=== PATIENT | female | born 1970 | race Caucasian/White ===

== ENCOUNTER 2025-04-19 17:49 | Emergency (ER) | payer SELFPAY ==
--- OUTSIDE RECORDS SUMMARY | 2025-04-19 17:55 | XMS REPORT | Continuity of Care Document ---
Author Name Unknown Address [address] [place] [address] [facility] Address [address] [place] [address] Care Team Providers Care Order Builder Name Role Phone PCP, NO Primary Care Physician Unavailab DR LAZARA Feliciano Attending Clinician UnavailCHELSEA Bunn Attending Clinician Unavailab ABDI Ochoa Attending Clinician Unavailable KATALINA DODSON Attending Clinician UnavailVARUN Murphy Attending Clinician Unavailable DR JAYANT SANCHEZ Attending Clinician Unavailab ROSALIO Manrique Attending Clinician Unavailable JAUN JONES Attending Clinician Unavailable KELSEY BYRNE Attending Clinician UnavailDAIJA Ochoa Attending Clinician Unavailable DR LAZARA BRAUN Admitting Clinician UnavailABDI Ellison Admitting Clinician Unavailable DR JAYANT SANCHEZ Admitting Clinician Unavailab ROSALIO Manrique Admitting Clinician Unavailable JAUN JONES Admitting Clinician Unavailable CARIN GOMEZ Admitting Clinician Unavailable DO JAMESON ONEIL Admitting Clinician Unavailable DEVON CHEN Admitting Clinician Unavailable KELSEY BYRNE Admitting Clinician UnavailDAIJA Ochoa Admitting Clinician Unavailable Payers Payer Name Policy Type Policy Number Effective Date Expirati on Date Source BCBS - OP JEA [id number] 1959 00:00:00 [id number] 1959 00:00:00 Problems Condition Name Condition Details Condition Category Status Onset Date Resolution Date Last Treatment Date Treating Clinician Comments Source Abdominal pain Abdominal pain Problem Active 6 00:00: [address] [facility] ([facility]) Migraine Migraine Problem Active 8- 00:00: [address] [facility] (LUF[facility] V/[facility]) Allergic reaction Allergic reaction Problem Active 406 00:00: [address] [facility] (LUF/LI V/SA) Allergic reaction Allergic reaction Problem Active 3 00:00: [address] [facility] (LUF/LI V/SA) Pain in lower limb Pain in lower limb Problem Active 2016-08 1 00:00: [address] [facility] (LUF/LI V/SA) subhepatic calcificat ion subhepatic calcificat ion Problem Active 03-25 00:00: [address] [facility] (LUF/[facility] V/SA) Chest wall pain Chest wall pain Problem Active 01-21 00:00: [address] [facility] (LUF/LI V/SA) Seizure disorder SEIZURE DISORDER active [id number] SNOMED-CT Problem 2024-05-13 20:12:09 [facility] Hypertensi ve disorder HTN active [id number] SNOMED-CT Problem 2024-05-13 20:12:15 [facility] Diabetes mellitus DM active [id number] SNOMED-CT Problem 2024-05-13 20:12:25 [facility] Folliculit is FOLLICULIT IS active [id number] SNOMED-CT Problem 2024-05-13 20:17:14 [facility] Generalize d anxiety disorder Problem [facility] Fibromyalg ia Problem [facility]) Multiple nodules of lung Problem [facility]) Type 2 diabetes mellitus Problem [facility] Hypertensi ve disorder Problem [facility]) Hyperchole sterolemia Problem [facility]) Chest pain Chest pain Problem Active [facility] 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 Problem [facility] Allergies, Adverse Reactions, Alerts Allergy Name Allergy Type Status Severity Reaction(s) Onset Date Inactive Date Treating Clinician Comments Source Valium Drug Allergy Active SV Nausea 01-21 12:28: 42 [facility] ([facility]) No Known Allergie s NA Active 01-21 11:22: 25 [facility] ([facility]) Valium Drug Allergy Active SV Nausea 01-21 11:22: 25 [facility]) No Known Allergie s NA Active 01-21 09:39: 37 [facility]) No Known Allergie s NA Active 01-21 09:31: 45 [facility] ([facility]) No Known Allergie s NA Active 01-21 08:35: 54 [facility]) No Known Allergie s NA Active 01-21 08:30: 55 [facility]) No Known Allergie s NA Active 01-21 06:51: 16 [facility]) No Known Allergie s NA Active 01-21 06:50: 42 [facility]) No Known Allergie s NA Active 01-21 04:27: 46 [facility]) No Known Allergie s NA Active 01-21 02:33: 51 [facility]) Valium DA Active Unknown [facility] ([facility]) adhesive tape DA Active Unknown [facility]) MISC-AILIN G DA Active Unknown [facility] (LUF/LI V/SA) Valium Drug Allergy Active Severe Drug-induced nausea and vomiting [facility]) VALIUM DA Active UNKNOWN "ADVERSE REACTION" [facility] VALIUM Drug allergy (disorde r) Active [facility] Social History Smoking Status Start Date Stop Date Source Never Smoked [facility]) Medications Ordered Medication Name Filled Medication Name Start Date Stop Date Current Medication? Ordering Clinician Indication Dosage Frequency Signature (SIG) Comments Components Source Clindamycin 300MG Oral Capsule 05-13 00:00: 00 No 1CAPSUL E Clindamyci n 300MG Oral Capsule 05/13/2024 Unknown BY MOUTH Three Times A Day 1 CAPSULE [id number] RxNorm TAKE 1 CAPSULE BY MOUTH Three Times A Day [facility] Ketorolac 10MG Oral Tablet 05-13 00:00: 00 No 1TABLET Ketorolac 10MG Oral Tablet 05/13/2024 Unknown BY MOUTH Three Times A Day As Needed 1 TABLET [id number] RxNorm TAKE 1 TABLET BY MOUTH Three Times A Day As Needed FOR [facility] atorvaSTATi n atorvaSTATi n 01-24 10:58: 32 Yes 20mg medication :atorvaSTA Tin|dose:2 0.0 mg|route:O RAL|freque ncy:AT BEDTIME [facility]) gabapentin gabapentin 01-24 10:58: 32 Yes 300mg medication :gabapenti n|dose:300 .0 mg|route:O RAL|freque ncy:THREE TIME DAILY [facility] ([facility]) insulin regular (humulin) 100 UNIT/ML insulin regular (humulin) 100 UNIT/ML 01-24 10:58: 32 Yes 0UN medication :insulin regular (humulin) 100 UNIT/ML|do se:0.0 UN|route:S UBCUTANEOU S|frequenc y:BEFORE MEALS AND AT BEDTIME [facility]) insulin, glargine 100 UNIT/ML insulin, glargine 100 UNIT/ML 01-24 10:58: 32 Yes 10UN medication :insulin, glargine 100 UNIT/ML|do se:10.0 UN|route:S UBCUTANEOU S|frequenc y:AT BEDTIME [facility]) sertraline (zoloft) sertraline (zoloft) 01-24 10:58: 32 Yes 50mg medication :sertralin e (zoloft)|d ose:50.0 mg|route:O RAL|freque ncy:EVERY MORNING [facility] ([facility]) Lisinopril Oral Tablet 40 MG Lisinopril Oral Tablet 40 MG 01-24 10:58: 32 Yes 40mg medication :Lisinopri l Oral Tablet 40 MG|dose:40 .0 mg|route:O RAL|freque ncy:DAILY [facility] ([facility]) sertraline (zoloft) 50 MG TABS sertraline (zoloft) 50 MG TABS 01-24 09:00: 00 01-24 14:30 :00 No 50mg medication :sertralin e (zoloft) 50 MG TABS|dose: 50.0 mg|route:O RAL|freque ncy:EVERY MORNING [facility]) atorvaSTATi n 20 MG TABS atorvaSTATi n 20 MG TABS 01-23 21:00: 00 01-24 14:30 :00 No 20mg medication :atorvaSTA Tin 20 MG TABS|dose: 20.0 mg|route:O RAL|freque ncy:AT BEDTIME [facility]) gabapentin 300 MG CAPS gabapentin 300 MG CAPS 01-23 12:33: 00 01-24 14:30 :00 No 300mg medication :gabapenti n 300 MG CAPS|dose: 300.0 mg|route:O RAL|freque ncy:THREE TIME DAILY [facility] ([facility]) insulin, glargine 100 UNIT/ML SOLN insulin, glargine 100 UNIT/ML SOLN 01-22 21:00: 00 01-24 14:30 :00 No 10UN medication :insulin, glargine 100 UNIT/ML SOLN|dose: 10.0 UN|route:S UBCUTANEOU S|frequenc y:AT BEDTIME [facility] ([facility]) insulin regular (humulin) 100 UNIT/ML SOLN insulin regular (humulin) 100 UNIT/ML SOLN 01-22 16:30: 00 01-24 14:30 :00 No 1UN medication :insulin regular (humulin) 100 UNIT/ML SOLN|dose: 1.0 UN|route:S UBCUTANEOU S|frequenc y:BEFORE MEALS AND AT BEDTIME [facility] ([facility]) sertraline (zoloft) 25 MG TABS sertraline (zoloft) 25 MG TABS 01-22 13:40: 00 01-23 12:32 :51 No 25mg medication :sertralin e (zoloft) 25 MG TABS|dose: 25.0 mg|route:O RAL|freque ncy:EVERY MORNING [facility] ([facility]) multivitami n TABS multivitami n TABS 01-22 09:00: 00 01-24 10:58 :32 No 1TAB medication :multivita min TABS|dose: 1.0 TAB|route: ORAL|frequ ency:DAILY [facility] ([facility]) lisinopril 20 MG TABS lisinopril 20 MG TABS 01-22 09:00: 00 01-24 14:30 :00 No 40mg medication :lisinopri l 20 MG TABS|dose: 40.0 mg|route:O RAL|freque ncy:DAILY [facility] ([facility]) nicotine 21mg TD 21 MG/24HR PT24 nicotine 21mg TD 21 MG/24HR PT24 01-22 09:00: 00 01-22 09:00 :00 No 1PAT medication :nicotine 21mg TD 21 MG/24HR PT24|dose: 1.0 PAT|route: TOPICAL|fr equency:DA SANGITA [facility]) gabapentin 300 MG CAPS gabapentin 300 MG CAPS 01-21 13:32: 00 01-23 12:33 :14 No 300mg medication :gabapenti n 300 MG CAPS|dose: 300.0 mg|route:O RAL|freque ncy:TWICE DAILY NEEDED [facility] CLARIFICATI ON: MED QUESTION MISC CLARIFICATI ON: MED QUESTION MISC 01-21 12:58: 00 01-21 13:34 :44 No 1EA medication :CLARIFICA TION: MED QUESTION MISC|dose: 1.0 EA|route:N OT APPLICABLE |frequency :EVERY 3 HOURS [facility]) gabapentin 300 MG CAPS gabapentin 300 MG CAPS 01-21 12:55: 00 01-21 13:34 :00 No 300mg medication :gabapenti n 300 MG CAPS|dose: 300.0 mg|route:O RAL|freque ncy:TWICE DAILY NEEDED [facility] metFORMIN metFORMIN 01-21 12:54: 39 Yes 1000mg medication :metFORMIN |dose:1000 .0 mg|route:O RAL|freque ncy:BIDMEA LS [facility]) gabapentin gabapentin 01-21 12:54: 26 Yes 300mg medication :gabapenti n|dose:300 .0 mg|route:O RAL|freque ncy:BIDPRN [facility]) lisinopril lisinopril 01-21 12:54: 15 Yes 40mg medication :lisinopri l|dose:40. 0 mg|route:O RAL|freque ncy:DAILY [facility]) DULoxetine EC CAP DULoxetine EC CAP 01-21 12:54: 04 Yes 0mg medication :DULoxetin e EC CAP|dose:0 .0 mg|route:O RAL|freque ncy:DAILY [facility] ([facility]) insulin regular (humulin) 100 UNIT/ML SOLN insulin regular (humulin) 100 UNIT/ML SOLN 01-21 12:20: 00 01-22 14:27 :20 No 1UN medication :insulin regular (humulin) 100 UNIT/ML SOLN|dose: 1.0 UN|route:S UBCUTANEOU S|frequenc y:BEFORE MEALS AND AT BEDTIME [facility] glucose ORAL 40 % GEL glucose ORAL 40 % GEL 01-21 12:19: 01-24 10:58 :32 No 1TBE medication :glucose ORAL 40 % GEL|dose:1 .0 TBE|route: ORAL|frequ ency: NEEDED [facility]) glucose ORAL 40 % GEL glucose ORAL 40 % GEL 01-21 12:19: 01-24 10:58 :32 No 2TBE medication :glucose ORAL 40 % GEL|dose:2 .0 TBE|route: ORAL|frequ ency: NEEDED [facility] glucagon INJ 1 MG SOLR glucagon INJ 1 MG SOLR 01-21 12:19: 01-24 10:58 :32 No 1mg medication :glucagon INJ 1 MG SOLR|dose: 1.0 mg|route:I NTRAMUSCUL AR|frequen cy: NEEDED [facility]) D50W INJ SYRINGE SOLN D50W INJ SYRINGE SOLN 01-21 12:19: 01-24 10:58 :32 No 50mL medication :D50W INJ SYRINGE SOLN|dose: 50.0 mL|route:I NTRAVENOUS |frequency : NEEDED [facility]) D50W INJ SYRINGE SOLN D50W INJ SYRINGE SOLN 01-21 12:19: 01-24 10:58 :32 No 25mL medication :D50W INJ SYRINGE SOLN|dose: 25.0 mL|route:I NTRAVENOUS |frequency : NEEDED [facility]) D5W SOLN D5W SOLN 01-21 12:19: 01-24 10:58 :32 No 1000mL medication :D5W SOLN|dose: 1000.0 mL|route:I NTRAVENOUS |frequency : NEEDED [facility] Trulicity Subcutaneou s Solution Pen-injecto r 0.75 MG/0.5ML Trulicity Subcutaneou s Solution Pen-injecto r 0.75 MG/0.5ML 01-21 11:32: 50 Yes .5 medication :Trulicity Subcutaneo us Solution Pen-inject or 0.75 MG/0.5ML|d ose:0.5 |route:SQ* |frequency :QWK [facility] acetaminoph en ES 500 MG TABS acetaminoph en ES 500 MG TABS 01-21 09:31: 01-24 10:58 :32 No 500mg medication :acetamino phen ES 500 MG TABS|dose: 500.0 mg|route:O RAL|freque ncy:EVERY 6 HOURS NEEDED [facility] magnesium hydroxide (MOM) 400 MG/5 ML SUSP magnesium hydroxide (MOM) 400 MG/5 ML SUSP 01-21 09:31: 01-24 10:58 :32 No 60mL medication :magnesium hydroxide (MOM) 400 MG/5 ML SUSP|dose: 60.0 mL|route:O RAL|freque ncy:DAILY NEEDED [facility]) bismuth subsalicyla te TAB 262 MG CHEW bismuth subsalicyla te TAB 262 MG CHEW 01-21 09:31: 00 01-24 10:58 :32 No 2TAB medication :bismuth subsalicyl ate TAB 262 MG CHEW|dose: 2.0 TAB|route: ORAL|frequ ency:EVERY HOUR NEEDED [facility] cloNIDine (catapres) 0.1 MG TABS cloNIDine (catapres) 0.1 MG TABS 01-21 09:31: 01-24 10:58 :32 No .1mg medication :cloNIDine (catapres) 0.1 MG TABS|dose: 0.1 mg|route:O RAL|freque ncy:THREE TIMES DAILY NEEDED [facility]) ondansetron 4 MG TABS ondansetron 4 MG TABS 01-21 09:31: 01-24 10:58 :32 No 4mg medication :ondansetr on 4 MG TABS|dose: 4.0 mg|route:O RAL|freque ncy:EVERY 6 HOURS NEEDED [facility] carmex lip balm 1 EA OINT carmex lip balm 1 EA OINT 01-21 09:31: 01-24 10:58 :32 No 1APP medication :carmex lip balm 1 EA OINT|dose: 1.0 SANCHO|route: TOPICAL|fr equency: NEEDED [facility] traZODone 50 MG TABS traZODone 50 MG TABS 01-21 09:31: 01-24 10:58 :32 No 50mg medication :traZODone 50 MG TABS|dose: 50.0 mg|route:O RAL|freque ncy:AT BEDTIME NEEDED [facility]) haloperidol 5 MG TABS haloperidol 5 MG TABS 01-21 09:31: 01-24 10:58 :32 No 5mg medication :haloperid ol 5 MG TABS|dose: 5.0 mg|route:O RAL|freque ncy:THREE TIMES DAILY NEEDED [facility]) LORazepam 2 MG TABS LORazepam 2 MG TABS 01-21 09:31: 01-24 10:58 :32 No 2mg medication :LORazepam 2 MG TABS|dose: 2.0 mg|route:O RAL|freque ncy:THREE TIMES DAILY NEEDED [facility]) hydrOXYzine PAMOATE (Vistaril) 25 MG CAPS hydrOXYzine PAMOATE (Vistaril) 25 MG CAPS 01-21 09:31: 01-24 10:58 :32 No 25mg medication :hydrOXYzi ne PAMOATE (Vistaril) 25 MG CAPS|dose: 25.0 mg|route:O RAL|freque ncy:THREE TIMES DAILY NEEDED [facility]) nicotine LOZENGE polacrilex 2 MG LOZG nicotine LOZENGE polacrilex 2 MG LOZG 01-21 09:31: 00 01-22 08:21 :07 No 2mg medication :nicotine LOZENGE polacrilex 2 MG LOZG|dose: 2.0 mg|route:O RAL|freque ncy:EVERY HOUR NEEDED [facility]) insulin regular (humulin) 100 UNIT/ML SOLN insulin regular (humulin) 100 UNIT/ML SOLN 01-21 06:28: 00 01-21 06:28 :00 No 100UN medication :insulin regular (humulin) 100 UNIT/ML SOLN|dose: 100.0 UN|route:S UBCUTANEOU S|frequenc y:ONE TIME [facility] NS SOLN NS SOLN 01-21 06:28: 00 01-21 06:28 :00 No 1000mL medication :NS SOLN|dose: 1000.0 mL|route:I NTRAVENOUS |frequency :ONE TIME [facility] Cephalexin Oral Cephalexin Oral Yes 500mg QID [facility] ([facility]) gabapentin gabapentin Yes 300mg QD [facility] ([facility]F/LI [facility]/SA) Glipizide Glipizide Yes 5MIL LIG TOMAS BID [facility] (LUF/LI V/SA) Lisinopril Lisinopril Yes [address] KIR[address] GRAMS QD [facility] (LUF/LI V/SA) Phenazopyri dine hydrochlori de 100 MG Oral Tablet Phenazopyri dine hydrochlori de 100 MG Oral Tablet Yes 100mg TID [facility] (LUF/LI V/SA) furosemide 40 MG Oral Tablet furosemide 40 MG Oral Tablet Yes 40mg [facility] (LUF/LI V/SA) Gabapentin Gabapentin Yes 300mg 1xD [facility] (LUF/LI V/SA) glipiZIDE glipiZIDE Yes [address]xD [facility] (LUF/LI V/SA) [facility]inop[facility] phenazopyri dine hydrochlori de 100 MG Oral Tablet phenazopyri dine hydrochlori de 100 MG Oral Tablet Yes 100mg 3xD [facility]) Pulmicort Flexhaler 180 mcg/actuati on breath activated Pulmicort Flexhaler 180 mcg/actuati on breath activated Yes 2 2xD [facility] (LUF/LI V/SA) albuterol 0.833 MG/ML / ipratropium bromide 0.167 MG/ML Inhalation Solution albuterol 0.833 MG/ML / ipratropium bromide 0.167 MG/ML Inhalation Solution Yes 3mL Q5.00H inhaled every 4 to 6 hours as needed. (as needed for wheezing) [facility] (LUF/LI V/SA) albuterol sulfate HFA 90 mcg/actuati on aerosol inhaler albuterol sulfate HFA 90 mcg/actuati on aerosol inhaler Yes 2 4xD inhaled 4 times per day as needed. (WITH SPACER, as needed for shortness of breath, wheezing, or persistent cough) [facility] (LUF/LI V/SA) azithromyci n 250 mg tablet azithromyci n 250 mg tablet Yes 1 orally as directed on dose pack (For 250 mg dose pack: take 500 mg today (day 1), then 250 mg for 4 days (days 2-5)) [facility]) cephALEXin cephALEXin Yes 500mg 4xD oral ly 4 times per day [facility] (LUF/LI V/SA) dexamethaso ne 6 MG Oral Tablet dexamethaso ne 6 MG Oral Tablet Yes 6mg 1xD orally daily [facility] (LUF/LI V/SA) albuterol sulfate HFA 90 mcg/actuati on aerosol inhaler albuterol sulfate HFA 90 mcg/actuati on aerosol inhaler Yes [address] [facility] ([facility]/LI [facility]) cephALEXin cephALEXin Yes 500mg [address]xD [facility] (LUF/LI V/SA) dexamethaso ne 6 MG Oral Tablet dexamethaso ne 6 MG Oral Tablet Yes 6mg [address]xD [facility] (LUF/LI V/SA) furosemide 40 MG Oral Tablet furosemide 40 MG Oral Tablet Yes 40mg [facility] ([facility]F/LI [facility]/SA) Gabapentin Gabapentin Yes 300mg [address]xD [facility] (LUF/LI V/SA) glipiZIDE glipiZIDE Yes [address]xD [facility] (LUF/LI V/SA) Lisinopril Lisinopril Yes [address]xD [facility] (LUF/LI V/SA) phenazopyri dine hydrochlori de 100 MG Oral Tablet phenazopyri dine hydrochlori de 100 MG Oral Tablet Yes 100mg [address]xD [facility] (LUF/LI V/SA) albuterol sulfate HFA 90 mcg/actuati on aerosol inhaler albuterol sulfate HFA 90 mcg/actuati on aerosol inhaler Yes [address] [facility] (LUF/LI V/SA) cephALEXin cephALEXin Yes 500mg [address]xD [facility] (LUF/LI V/SA) dexamethaso ne 6 MG Oral Tablet dexamethaso ne 6 MG Oral Tablet Yes 6mg [address]xD [facility] (LUF/LI V/SA) furosemide 40 MG Oral Tablet furosemide 40 MG Oral Tablet Yes 40mg [facility] ([facility]F/LI V/SA) Gabapentin Gabapentin Yes 300mg [address]xD [facility] (LUF/LI V/SA) glipiZIDE glipiZIDE Yes [address]xD [facility] (LUF/LI V/SA) Lisinopril Lisinopril Yes [address]xD [facility] (LUF/LI V/SA) phenazopyri dine hydrochlori de 100 MG Oral Tablet phenazopyri dine hydrochlori de 100 MG Oral Tablet Yes 100mg 3xD [facility] (LUF/LI V/SA) Vital Signs Vital Name Observation Time Observation Value Comments S ource Height 2024-05-13 20:33:06 071 Inches Body Weight 2024-05-13 20:33:06 196.00 pounds Body Weight 2024-05-13 20:27:33 196.00 pounds Height 2024-05-13 20:27:33 071 Inches Height 2024-05-13 20:25:34 071 Inches Body Weight 2024-05-13 20:25:34 196.00 pounds Height 2024-05-13 20:25:26 071 Inches Body Weight 2024-05-13 20:25:26 196.00 pounds Height 2024-05-13 20:24:58 071 Inches Body Weight 2024-05-13 20:24:58 196.00 pounds Heart Rate 2024-05-13 20:02:00 104.0 /min Respiratory Rate 2024-05-13 20:02:00 18 /min Body Temperature 2024-05-13 20:02:00 36.9 Estela Body Weight 2024-05-13 20:02:00 88.90 kg Body Mass Index 2024-05-13 20:02:00 27.34 kg/m2 Systolic Blood Pressure 2024-05-13 20:02:00 161 mm[Hg] Diastolic Blood Pressure 2024-05-13 20:02:00 119 mm[Hg] Body Height 2024-05-13 20:02:00 180.3400 cm Oxygen Saturation 2024-05-13 20:02:00 96 % Height 2024-05-13 20:33:06 071 Inches Body Weight 2024-05-13 20:33:06 196.00 pounds Body Weight 2024-05-13 20:27:33 196.00 pounds Height 2024-05-13 20:27:33 071 Inches Height 2024-05-13 20:25:34 071 Inches Body Weight 2024-05-13 20:25:34 196.00 pounds Height 2024-05-13 20:25:26 071 Inches Body Weight 2024-05-13 20:25:26 196.00 pounds Height 2024-05-13 20:24:58 071 Inches Body Weight 2024-05-13 20:24:58 196.00 pounds Heart Rate 2024-05-13 20:02:00 104.0 /min Respiratory Rate 2024-05-13 20:02:00 18 /min Body Temperature 2024-05-13 20:02:00 36.9 Estela Body Weight 2024-05-13 20:02:00 88.90 kg Body Mass Index 2024-05-13 20:02:00 27.34 kg/m2 Systolic Blood Pressure 2024-05-13 20:02:00 161 mm[Hg] Diastolic Blood Pressure 2024-05-13 20:02:00 119 mm[Hg] Body Height 2024-05-13 20:02:00 180.3400 cm Oxygen Saturation 2024-05-13 20:02:00 96 % Body temperature 2023-01-24 07:49:00 98.2 [degF] [facility]) Diastolic blood pressure 2023-01-24 07:49:00 85 mm[Hg] [facility] [place]) Heart rate 2023-01-24 07:49:00 81 /min [facility]) Oxygen saturation in Arterial blood by Pulse oximetry 2023-01-24 07:49:00 99 /min [facility] [place]) Respiratory rate 2023-01-24 07:49:00 17 /min [facility]) Systolic blood pressure 2023-01-24 07:49:00 137 mm[Hg] [facility] [place]) Body height 2023-01-21 11:29:24 180.34 cm [facility]) Body mass index (BMI) [Ratio] 2023-01-21 11:29:24 30.68 kg/m2 [facility] [place]) Body weight Measured 2023-01-21 11:29:24 99.79 kg [facility]) Height 2022-06-20 23:41:00 180.34 CM Weight 2022-06-20 23:41:00 99.8 KG Height 2022-06-07 21:59:00 172.72 CM Weight 2022-06-07 21:59:00 99.8 KG Pulse Rate 2022-06-21 01:03:00 71 /min [facility] (LUF/KARI/SA) BP Systolic 2022-06-21 01:03:00 138 mm[Hg] [facility] (LUF/KARI/SA) BP Diastolic 2022-06-21 01:03:00 96 mm[Hg] [facility] (LUF/KARI/SA) O2% BldC Oximetry 2022-06-21 00:33:00 97 % [facility] (LUF/KARI/SA) Body Temperature 2022-06-20 23:41:00 97.4 [degF] [facility] (LUF/KARI/SA) Respiratory Rate 2022-06-20 23:41:00 20 /min [facility] (LUF/KARI/SA) Height 2022-06-20 23:41:00 71 [in_i] [facility] (LUF/KARI/SA) Weight 2022-06-20 23:41:00 99.8 kg [facility] (LUF/KARI/SA) BMI (Body Mass Index) 2022-06-20 23:41:00 30.8 kg/m2 [facility] (LUF/KARI/SA) Body Temperature 2022-06-08 02:02:00 98.3 [degF] [facility] (LUF/KARI/SA) Pulse Rate 2022-06-08 02:02:00 67 /min [facility] (LUF/KARI/SA) Respiratory Rate 2022-06-08 02:02:00 18 /min [facility] (LUF/KARI/SA) O2% BldC Oximetry 2022-06-08 02:02:00 97 % [facility] (LUF/KARI/SA) BP Systolic 2022-06-08 02:02:00 164 mm[Hg] [facility] (LUF/KARI/SA) BP Diastolic 2022-06-08 02:02:00 92 mm[Hg] [facility] (LUF/KARI/SA) Height 2022-06-07 21:59:00 68 [in_i] [facility] Pending sale to [facility] (LUF/KARI/SA) Weight 2022-06-07 21:59:00 99.8 kg [facility] [facility] S t [facility] (LUF/KARI/SA) BMI (Body Mass Index) 2022-06-07 21:59:00 33.7 kg/m2 [facility] (LUF/KARI/SA) Body Temperature 2019-02-19 22:24:00 97.8 F [facility] (LUF/KARI/SA) Pulse Rate 2019-02-19 22:24:00 69 /min [facility] S Pending sale to [facility] (LUF/KARI/SA) Respiratory Rate 2019-02-19 22:24:00 18 /min [facility] (LUF/KARI/SA) O2% BldC Oximetry 2019-02-19 22:24:00 97 % [facility] (LUF/KARI/SA) BP Systolic 2019-02-19 22:24:00 127 mm[Hg] [facility] (LUF/KARI/SA) BP Diastolic 2019-02-19 22:24:00 74 mm[Hg] [facility] (LUF/KARI/SA) Height 2019-02-19 19:47:00 68 in [facility] S conner [facility] (LUF/KARI/SA) Weight Measured 2019-02-19 19:47:00 229.94 lbs [facility] (LUF/KARI/SA) BMI (Body Mass Index) 2019-02-19 19:47:00 35.2 kg/m2 [facility] (LUF/KARI/SA) Pulse Rate 2019-01-06 18:41:00 84 /min [facility] (LUF/KARI/SA) Respiratory Rate 2019-01-06 18:41:00 17 /min [facility] (F/KARI/SA) O2% BldC Oximetry 2019-01-06 18:41:00 96 % [facility] (LUF/KARI/SA) BP Systolic 2019-01-06 18:41:00 134 mm[Hg] [facility] (LUF/KARI/SA) BP Diastolic 2019-01-06 18:41:00 93 mm[Hg] [facility] (LUF/KARI/SA) Body Temperature 2019-01-06 18:01:00 97.4 F [facility] (LUF/KARI/SA) Height 2019-01-06 18:01:00 68 in [facility] S t [facility] (LUF/KARI/SA) Weight Measured 2019-01-06 18:01:00 220 lbs [facility] (LUF/KARI/SA) BMI (Body Mass Index) 2019-01-06 18:01:00 33.7 kg/m2 [facility] (LUF/KARI/SA) Body Temperature 2018-03-28 10:18:00 97.8 F [facility] (LUF/KARI/SA) Respiratory Rate 2018-03-28 10:18:00 14 /min [facility] (LUF/KARI/SA) O2% BldC Oximetry 2018-03-28 10:18:00 97 % [facility] (LUF/KARI/SA) BP Systolic 2018-03-28 10:18:00 148 mm[Hg] [facility] (LUF/KARI/SA) BP Diastolic 2018-03-28 10:18:00 91 mm[Hg] [facility] (LUF/KARI/SA) Height 2018-03-28 10:18:00 68 in [facility] (LUF/KARI/SA) Weight Measured 2018-03-28 10:18:00 210 lbs [facility] (LUF/KARI/SA) BMI (Body Mass Index) 2018-03-28 10:18:00 32.1 [facility] (LUF/KARI/SA) Body Temperature 2017-12-25 16:54:00 98.1 F [facility] (LUF/KARI/SA) Respiratory Rate 2017-12-25 16:54:00 20 /min [facility] (LUF/KARI/SA) O2% BldC Oximetry 2017-12-25 16:54:00 96 % [facility] (LUF/KARI/SA) BP Systolic 2017-12-25 16:54:00 141 mm[Hg] [facility] (LUF/KARI/SA) BP Diastolic 2017-12-25 16:54:00 93 mm[Hg] [facility] (LUF/KARI/SA) Height 2017-12-25 16:54:00 68 in [facility] S t [facility] (LUF/KARI/SA) Weight Measured 2017-12-25 16:54:00 235.89 lbs [facility] (LUF/KARI/SA) BMI (Body Mass Index) 2017-12-25 16:54:00 36.1 [facility] (LUF/KARI/SA) Respiratory Rate 2017-11-30 22:04:00 19 /min [facility] (LUF/KARI/SA) O2% BldC Oximetry 2017-11-30 22:04:00 96 % [facility] (LUF/KARI/SA) Body Temperature 2017-11-30 21:57:00 98.5 F [facility] (LUF/KARI/SA) BP Systolic 2017-11-30 21:57:00 127 mm[Hg] [facility] (LUF/KARI/SA) BP Diastolic 2017-11-30 21:57:00 82 mm[Hg] [facility] (LUF/KARI/SA) Height 2017-11-30 19:51:00 68 in [facility] Maximino prieto [facility] (LUF/KARI/SA) Weight Measured 2017-11-30 19:51:00 233.68 lbs [facility] (LUF/KARI/SA) BMI (Body Mass Index) 2017-11-30 19:51:00 35.8 [facility] (LUF/KARI/SA) O2% BldC Oximetry 2017-11-19 20:51:00 97 % [facility] (LUF/KARI/SA) Body Temperature 2017-11-19 19:58:00 98 F [facility] (LUF/KARI/SA) Respiratory Rate 2017-11-19 19:58:00 20 /min [facility] (LUF/KARI/SA) BP Systolic 2017-11-19 19:58:00 133 mm[Hg] [facility] (LUF/KARI/SA) BP Diastolic 2017-11-19 19:58:00 90 mm[Hg] [facility] (LUF/KARI/SA) Height 2017-11-19 19:58:00 68 in [facility] (LUF/KARI/SA) Weight Measured 2017-11-19 19:58:00 238.09 lbs [facility] (LUF/KARI/SA) BMI (Body Mass Index) 2017-11-19 19:58:00 36.5 [facility] (LUF/KARI/SA) Respiratory Rate 2017-07-10 02:09:00 19 /min [facility] (LUF/KARI/SA) O2% BldC Oximetry 2017-07-10 02:09:00 97 % [facility] (LUF/KARI/SA) BP Systolic 2017-07-10 02:09:00 131 mm[Hg] [facility] (LUF/KARI/SA) BP Diastolic 2017-07-10 02:09:00 86 mm[Hg] [facility] (LUF/KARI/SA) Body Temperature 2017-07-10 01:01:00 97.8 F [facility] (LUF/KARI/SA) Height 2017-07-10 01:01:00 68 in [facility] (F/KARI/SA) Weight Measured 2017-07-10 01:01:00 220.06 lbs [facility] (LUF/KARI/SA) BMI (Body Mass Index) 2017-07-10 01:01:00 33.7 [facility] (LUF/KARI/SA) Procedures Procedure Date / Time Performed Performing Clinicia n Source Cholecystectomy [facility] (LUF/KARI/SA) Hysterectomy [facility] (LUF/KARI/SA) LIVER SX [facility] (LUF/KARI/SA) Encounters Start Date/Time End Date/Time Encounter Type Admission Type Attending Clinicians Care Facility Care Department Encounter ID Source 2023-02-06 16:47:10 Inpatient [facility] [id number] [facility] 2023-02-03 13:38:20 Inpatient [id number] 2023-02-01 10:13:19 Inpatient [facility] [id number] [facility] 2023-01-23 11:20:00 Inpatient [facility] 0530 [facility] 2024-05-13 19:52:00 2024-05-13 20:32:00 Emergency [facility]UN [facility] [id number] [facility] Antoinette daily 2024-05-13 19:52:00 2024-05-13 20:32:00 Outpatient [id number] 2023-04-21 23:23:00 2023-04-22 02:44:00 Emergency E CHELSEA WHITMAN [facility] [id number] 00 [facility] 2023-01-21 08:06:00 2023-01-24 14:30:00 Hospital Admission 1 ABDI JENNINGS [facility] [id number] [facility]) 2022-12-05 19:20:00 2022-12-06 00:47:00 [id number] [facility] 2022-09-27 23:55:00 2022-09-28 01:12:00 Emergency ER VARUN SANCHEZ [id number] [facility] 2022-06-20 23:37:00 2022-06-21 01:35:00 Emergency 1 JAYANT SANCHEZ ST[facility] EMD [id number] [facility] (LUF/LI V/SA) 2022-06-20 00:00:00 2022-06-20 00:00:00 Inpatient [facility], [address], [place] [address] [facility] [id number] [facility] (LUF/LI V/SA) 2022-06-07 21:54:00 2022-06-08 02:33:00 CHEST PAIN UNSPECIFIE D 1 ROSALIO PEARSON [facility] [id number] [facility] (LUF/LI V/SA) 2022-06-07 00:00:00 2022-06-07 00:00:00 Inpatient [facility] BERNARDO N, [address], [facility], [address] [id number] [facility] (LUF/LI V/SA) 2022-06-07 00:00:00 2022-06-07 00:00:00 Inpatient [facility], [address], [facility], [address] [id number] [facility] (LUF/LI V/SA) 2019-02-21 08:57:00 2019-02-21 23:59:00 GENERALIZE D ABDOMINAL PAIN 3 JAUN JONES [facility] N, [address], [address] [id number] [facility] (LUF/LI V/SA) 2019-02-19 19:40:00 2019-02-19 22:40:00 UNSPECIFIE D ABDOMINAL PAIN 1 CARIN GOMEZ [facility] N, [address], [address] [id number] [facility] (LUF/LI V/SA) 2019-01-06 17:54:00 2019-01-06 20:45:00 ACUTE PYELONEPHR ITIS E TAMAR GUIDYR [facility] N, [address], [address] [phone] [facility] (LUF/LI V/SA) 2018-03-28 09:50:00 2018-03-28 12:27:00 MIGRAINE UNS NOT INTRACT W/O SM E JAMESON ONEIL [facility] N, [address], [address] [phone] [facility] (LUF/LI V/SA) 2017-12-25 16:41:00 2017-12-25 18:30:00 ACUTE SINUSITIS UNSPECIFIE D RENALDO SETH [facility] N, [address], [place] [address] [facility] [id number] [facility] (LUF/LI V/SA) 2017-12-03 12:42:00 2017-12-03 23:59:00 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, [address], [facility], [place] [id number] [facility] [id number] [facility] (LUF/LI V/SA) 2017-11-19 19:40:00 2017-11-19 20:59:00 ALLERGY UNSPECIFIE D INITIAL ENCNTR KELSEY BYRNE [facility], [address], [place] [address] [facility] [phone] [facility] (LUF/LI V/SA) 2017-07-10 00:30:00 2017-07-10 04:40:00 PAIN IN RIGHT LOWER LEG [address] [facility], [address], [address] [phone] [facility] (LUF/LI V/SA) Results Test Description Test Time Test Comments Results Result Co mments Source Glucose mean value [Mass/volume] in Blood [id number] 12:24:00* Test Item Value Reference Range Interpretation Comme nts Glucose mean value [Mass/vol ume] in Blood Estimated from glycated hemoglobin (test code = 53798-7) 263 MG/DL 70.0-99.[address] [facility] ([place])WHOLE BLOOD [id number] 05:37:00* Test Item Value Reference Range Interpretation Comme nts WHOLE BLOOD GLUCOSE (test code = POC GLU) 249 MG/DL 70-99 H Fasting glucose normal <100 MG/DL- [employer] recommendation Glucose mean value [Mass/volume] in Blood [id number] 05:37:00* Test Item Value Reference Range Interpretation Comme nts Glucose mean value [Mass/vol ume] in Blood Estimated from glycated hemoglobin (test code = 34223-2) 249 MG/DL 70.0-99.0 H [facility])WHOLE BLOOD [id number] 03:40:00* Test Item Value Reference Range Interpretation Comme nts WHOLE BLOOD GLUCOSE (test code = POC GLU) 320 MG/DL 70-99 H Fasting glucose normal <100 MG/DL- [employer] recommendation Glucose mean value [Mass/volume] in Blood [id number] 03:40:00* Test Item Value Reference Range Interpretation Comme [facility] Glucose mean value [Mass/vol ume] in Blood Estimated from glycated hemoglobin (test code = 57786-7) 320 MG/DL 70.0-99.0 H [facility])WHOLE BLOOD [id number] 16:07:00* Test Item Value Reference Range Interpretation Comme [facility] WHOLE BLOOD GLUCOSE (test code = POC GLU) 255 MG/DL 70-99 H Fasting glucose normal <100 MG/DL- [employer] recommendation Glucose mean value [Mass/volume] in Blood [id number] 16:07:00* Test Item Value Reference Range Interpretation Comme nts Glucose mean value [Mass/vol ume] in Blood Estimated from glycated hemoglobin (test code = 78694-9) 255 MG/DL 70.0-99.0 H [facility])WHOLE BLOOD [id number] 11:28:00* Test Item Value Reference Range Interpretation Comme nts WHOLE BLOOD GLUCOSE (test code = POC GLU) 257 MG/DL 70-99 H Fasting glucose normal <100 MG/DL- [employer] recommendation Glucose mean value [Mass/volume] in Blood [id number] 11:28:00* Test Item Value Reference Range Interpretation Comme nts Glucose mean value [Mass/vol ume] in Blood Estimated from glycated hemoglobin (test code = 45989-9) 257 MG/DL 70.0-99.0 H [facility])WHOLE BLOOD [id number] 06:43:00* Test Item Value Reference Range Interpretation Comme nts WHOLE BLOOD GLUCOSE (test code = POC GLU) 261 MG/DL 70-99 H Fasting glucose normal <100 MG/DL- [employer] recommendation Glucose mean value [Mass/volume] in Blood [id number] 06:43:00* Test Item Value Reference Range Interpretation Comme nts Glucose mean value [Mass/vol ume] in Blood Estimated from glycated hemoglobin (test code = 02034-9) 261 MG/DL 70.0-99.0 H [facility])RPR [id number] 02:56:00* Test Item Value Reference Range Interpretation Comme nts SCREEN RPR (test code = SCRN RPR) NONREACTIVE NONREACTIVE NR = NON-REACTI VE R = REACTIVE Reagin Ab [Presence] in Serum by [id number] [facility] [id number] 19:28:00* Test Item Value Reference Range Interpretation Comme nts WHOLE BLOOD GLUCOSE (test code = POC GLU) 253 MG/DL 70-99 H Fasting glucose normal <100 MG/DL- [employer] recommendation Glucose mean value [Mass/volume] in Blood [id number] 19:28:00* Test Item Value Reference Range Interpretation Comme nts Glucose mean value [Mass/vol ume] in Blood Estimated from glycated hemoglobin (test code = 66447-0) 253 MG/DL 70.0-99.0 H [facility])WHOLE BLOOD [id number] 16:15:00* Test Item Value Reference Range Interpretation Comme nts WHOLE BLOOD GLUCOSE (test code = POC GLU) 318 MG/DL 70-99 H Fasting glucose normal <100 MG/DL- [employer] recommendation Glucose mean value [Mass/volume] in Blood [id number] 16:15:00* Test Item Value Reference Range Interpretation Comme nts Glucose mean value [Mass/vol ume] in Blood Estimated from glycated hemoglobin (test code = 63981-9) 318 MG/DL 70.0-99.0 H [facility])WHOLE BLOOD [id number] 11:05:00* Test Item Value Reference Range Interpretation Comme nts WHOLE BLOOD GLUCOSE (test code = POC GLU) 270 MG/DL 70-99 H Fasting glucose normal <100 MG/DL- [employer] recommendation Glucose mean value [Mass/volume] in Blood [id number] 11:05:00* Test Item Value Reference Range Interpretation Comme nts Glucose mean value [Mass/vol ume] in Blood Estimated from glycated hemoglobin (test code = 60812-7) 270 MG/DL 70.0-99.0 H [facility])THYROID STIMULATION [id number] 09:58:00* Test Item Value Reference Range Interpretation Comme nts TSH (test code = TSH) 2.13 UIU/ML 0.465-4.68 Thyrotropin in Serum or [id number] 09:58:00* Test Item Value Reference Range Interpretation Comme nts Thyrotropin in Serum or Plas ma (test code = 66941-6) 2.13 UIU/ML 0.465-4.68 N [facility])LIPID [id number] 09:19:00* Test Item Value Reference Range Interpretation Comme nts CHOLEST (test code = CHOLEST) 223 MG/DL 0-200 H TRIGLYCE (test code = TRIGLYCE) 140 MG/DL 0-150 HDL (test code = HDL) 43 MG/DL 35-90 NEG ATIVE RISK FACTOR FOR HEART DISEASE IF HDL >/=60 mg/dl MAJOR RISK FACTOR FOR HEART DISEASE IF HDL <40 mg/dL CALC LDL (test code = CALC LDL) 152 MG/DL See_Comment H [Automated [employer]] The system which generated this result transmitted reference range: -100. The reference range was not used to interpret this result as normal/abnormal. VAP cholesterol panel - Serum or [id number] 09:17:00* Test Item Value Reference Range Interpretation Comme nts Cholesterol [Mass/volume] in Serum or Plasma (test code = 2093-3) 223 MG/DL 0.0-200.0 H Triglyceride [Mass/volume] i n Serum or Plasma (test code = 2571-8) 140 MG/DL 0.0-150.0 N Lipoprotein.alpha [Mass/volu me] in Serum or Plasma (test code = 2573-4) 43 MG/DL 35.0-90.0 N Cholesterol in LDL [Mass/vol ume] in Serum or Plasma by calculation (test code = 91196-1) 152 MG/DL H [facility])% HEMOGLOBIN A1C (GLYCATED)2023-01-22 09:16:00* Test Item Value Reference Range Interpretation Comme [facility] HEMOGLOBIN A1C (test code = GLYCO-) 11.1 % 0-6 H THERAPEUTIC TARG ET FOR THE TREATMENT OF DIABETES MELLITUS PATIENTS IS < 7% HBA1C. [employer] DIABETES CARE 2002;25:S33-S49 Hemoglobin A1c [Mass/volume] in [id number] 09:14:00* Test Item Value Reference Range Interpretation Comme [facility] Hemoglobin A1c/Hemoglobin.to jessee in Blood (test code = 4548-4) 11.1 % 0.0-6.0 H [facility])WHOLE BLOOD [id number] 06:18:00* Test Item Value Reference Range Interpretation Comme [facility] WHOLE BLOOD GLUCOSE (test code = POC GLU) 238 MG/DL 70-99 H Fasting glucose normal <100 MG/DL- [employer] recommendation Glucose mean value [Mass/volume] in Blood [id number] 06:18:00* Test Item Value Reference Range Interpretation Comme [facility] Glucose mean value [Mass/vol ume] in Blood Estimated from glycated hemoglobin (test code = 99088-9) 238 MG/DL 70.0-99.0 H [facility])WHOLE BLOOD [id number] 20:43:00* Test Item Value Reference Range Interpretation Comme [facility] WHOLE BLOOD GLUCOSE (test code = POC GLU) 242 MG/DL 70-99 H Fasting glucose normal <100 MG/DL- [employer] recommendation Glucose mean value [Mass/volume] in Blood [id number] 20:43:00* Test Item Value Reference Range Interpretation Comme [facility] Glucose mean value [Mass/vol ume] in Blood Estimated from glycated hemoglobin (test code = 34597-9) 242 MG/DL 70.0-99.0 H [facility])WHOLE BLOOD [id number] 16:24:00* Test Item Value Reference Range Interpretation Comme [facility] WHOLE BLOOD GLUCOSE (test code = POC GLU) 276 MG/DL 70-99 H Fasting glucose normal <100 MG/DL- [employer] recommendation Glucose mean value [Mass/volume] in Blood [id number] 16:24:00* Test Item Value Reference Range Interpretation Comme [facility] Glucose mean value [Mass/vol ume] in Blood Estimated from glycated hemoglobin (test code = 33556-8) 276 MG/DL 70.0-99.0 H [facility])WHOLE BLOOD [id number] 11:22:00* Test Item Value Reference Range Interpretation Comme [facility] WHOLE BLOOD GLUCOSE (test code = POC GLU) 237 MG/DL 70-99 H Fasting glucose normal <100 MG/DL- [employer] recommendation Glucose mean value [Mass/volume] in Blood [id number] 11:22:00* Test Item Value Reference Range Interpretation Comme [facility] Glucose mean value [Mass/vol ume] in Blood Estimated from glycated hemoglobin (test code = 09677-9) 237 MG/DL 70.0-99.0 H [facility])WHOLE BLOOD [id number] 08:21:00* Test Item Value Reference Range Interpretation Comme [facility] WHOLE BLOOD GLUCOSE (test code = POC GLU) 198 MG/DL 70-99 H Fasting glucose normal <100 MG/DL- [employer] recommendation Glucose mean value [Mass/volume] in Blood [id number] 08:21:00* Test Item Value Reference Range Interpretation Comme [facility] Glucose mean value [Mass/vol ume] in Blood Estimated from glycated hemoglobin (test code = 69395-9) 198 MG/DL 70.0-99.0 H [facility])B-HCG QUAL (KIT)2023-01-21 04:58:00* Test Item Value Reference Range Interpretation Comme nts HCGQUAL (test code = HCGQUAL) NEGATIVE NEGATIVE URINE: NEGATIVE = < 20 mIU/ML; POSITIVE= >/= 20 mIU/ML SERUM: NEGATIVE = < 10 mIU/ML; POSITIVE= >/= 10 mIU/ML SOURCE (test code = SOURCE) SERUM HCG INTERNAL POSITIVE CNTRL (test code = HCGIPC) PASS PASS HCG LOT # (test code = UHCGLOT) [id number] HCG EXPIRATION DATE (test code = UHCGEXP) 03.27.2024 Choriogonadotropin.beta subunit ( [id number] 04:58:00* Test Item Value Reference Range Interpretation Comme nts Specimen source [Identifier] of Body fluid (test code = 13919-3) SERUM N Reagent Lot number (test cod e = 86844-9) 03.27.2024 1 N [facility])ER SCREEN FOR HIV 04:45:00* Test Item Value Reference Range Interpretation Comme nts HIV 1/2 AB (test code = SCRN HIV) NEGATIVE NEGATIVE This test is us ed for SCREENING purposes only. All reactive results are prelimenary and confirmation results will follow. HEPATITIS C ANTIBODY [id number] 04:45:00* Test Item Value Reference Range Interpretation Comme [facility] SCRN HCV (test code = SCRN HCV) NEGATIVE NEGATIVE Hepatitis C Anti body test is for screening purposes only. All reactives will be confirmed by additional testing. Hepatitis C virus Ab [Presence] in [id number] 04:45[facility]HIV 1+2 Ab [Units/volume] in [id number] 04:45:00Negative [facility])URINE DRUG [id number] 04:41:00* Test Item Value Reference Range Interpretation Comme nts AMPHET (test code = BAMP) NEGATIVE NEGATIVE This is an uncon firmed screening. Result are to be used for medical purposes (treatment) only. Not intended for non-medical purposes. Cut-off concentration for a positive result for each drug: Amphetamine - 1,000 ng/ml Barbiturate - 200 ng/ml Benzodiazepine - 200 ng/ml Cannabinoids - 50 ng/ml Cocaine - 300 ng/ml Opiates - 300 ng/ml PCP - 25 ng/ml BARBITURATES (test code = BBAR) NEGATIVE NEGATIVE BENZO (test code = BBENZ) NEGATIVE NEGATIVE CANNABS (test code = BCANN) NEGATIVE NEGATIVE COCAINE (test code = BCOC) NEGATIVE NEGATIVE OPIATES (test code = BOPI) NEGATIVE NEGATIVE PCP (test code = BMTPCP) NEGATIVE NEGATIVE Drugs of abuse 5 panel - Urine by Screen [id number] 04:35:00 NegativeNegativeNegativeNegativeNegativeNegativeNegative[facility])[id number] 04:11:00* Test Item Value Reference Range Interpretation Comme nts GLUCOSE (test code = URGLU) >=1000 MG/DL NEG-100 BILIRUBN (test code = URBILI) NEGATIVE NEGATIVE KETONE (test code = URKET) NEGATIVE MG/DL NEGATIVE BLOOD (test code = URBLD) NEGATIVE NEGATIVE UR PH (test code = URPH) 7.0 5.0-7.5 PROTEIN (test code = URPRO) NEGATIVE MG/DL NEGATIVE NITRITES (test code = URNIT) NEGATIVE NEGATIVE UROBILINGEN (test code = URURO) 1.0 EU/DL 0.2-1.0 LEUKOCYT (test code = URLEU) NEGATIVE NEGATIVE UA COLOR (test code = UA COLOR) YELLOW YELLOW CLARITY (test code = CLARITY) CLOUDY CLEAR SP GRAV (test code = URSPGRAV) 1.026 1.000-1.025 H UAMICRO (test code = UAMICRO) NO Urinalysis panel - Urine by [id number] 04:11:00* Test Item Value Reference Range Interpretation Comme nts Glucose [Presence] in Urine (test code = 2349-9) >=1000 NEG N pH of Urine (test code = 2756-5) 7.0 1 5.0-7.5 N Urobilinogen [Presence] in U rine (test code = 49340-7) 1.0 EU/DL 0.2-1.0 N Specific gravity of Urine (t est code = 2965-2) 1.026 1 1.0-1.025 [facility])COVID SYMPTOMATIC ER [id number] 03:58:00* Test Item Value Reference Range Interpretation Comme nts CORONAVIRUS (COVID-19)BY PCR (test code = NGX01DBH) NEGATIVE SARS-CoV-2 (COVID-19) N gene [Presence] in [id number] 03:58:00Negative [facility] ([place])BLOOD ALCOHOL (ETOH)2023-01-21 03:56:00* Test Item Value Reference Range Interpretation Comme nts ALCOHOL BLOOD LEVEL (test code = ALC BLD) <10 MG/DL 0-10 Results ar e to be used for medical purposes (treatment) only. Not intended for non medical purposes. CREATINE [id number] 03:56:00* Test Item Value Reference Range Interpretation Comme nts CK (test code = CK) 75 U/L 30-135 [id number] 03:56:00* Test Item Value Reference Range Interpretation Comme nts SODIUM (test code = NA) 138 MMOL/L 137-145 K+ (test code = KSERUM) 4.4 MMOL/L 3.5-5.1 CHLORIDE (test code = CL) 103 MMOL/L 98-107 CO2 (test code = CO2) 25 MMOL/L 22-30 BUN (test code = BUN) 8 MG/DL 7-17 CREA (test code = CREA) 0.5 MG/DL 0.7-1.2 L GLUCOSE (test code = GLUCOSE) 327 MG/DL 70-99 H Fasting glucos e normal <100 MG/DL- [employer] recommendation CALCIUM (test code = CABLOOD) 9.0 MG/DL 8.4-10.2 TOTPROT (test code = TOTPROT) 7.2 G/DL 6.3-8.2 ALBUMIN (test code = ALBSERUM) 4.2 G/DL 3.5-5.0 BILITOT (test code = BILITOT) 0.9 MG/DL 0.2-1.3 AST (test code = AST) 32 U/L 15-46 PHOSALK (test code = PHOSALK) 106 U/L 38-126 ALTV (test code = ALTV) 23 U/L 13-69 GFR (test code = GFR) 138 mL/min/1.73m2 See_Comment A GFR of >90 mL/min/1.73m2 is considered normal. The GFR calculation on patients over 70 years of age is not validated by the armored vehicle officer and may not represent the patients true renal function. [Automated message] The system which generated this result transmitted reference range: 59-. The reference range was not used to interpret this result as normal/abnormal. Ethanol [Mass/volume] in [id number] 03:56:00* Test Item Value Reference Range Interpretation Comme nts Ethanol [Mass/volume] in Blo od (test code = 5640-8) <10 0.0-10.[address] [facility] ([place])Comprehensive metabolic 2000 panel - Serum or P 2023-01-21 03:56:00* Test Item Value Reference Range Interpretation Comme nts Sodium [Moles/volume] in Blood (test code = 2947-0) 138 MMOL/L 137.0-145.0 N Potassium [Moles/volume] in Blood (test code = 6298-4) 4.4 MMOL/L 3.5-5.1 N Chloride [Moles/volume] in Blood (test code = 2069-3) 103 MMOL/L 98.0-107.0 N Carbon dioxide, total [Moles/volume] in Blood (test code = 87749-7) 25 MMOL/L 22.0-30.0 N Urea nitrogen [Mass/volume] in Serum or Plasma (test code = 3094-0) 8 MG/DL 7.0-17.0 N Creatinine [Mass/volume] in Blood (test code = 05579-3) 0.5 MG/DL 0.7-1.2 L Glucose [Mass/volume] in Blood (test code = 2339-0) 327 MG/DL 70.0-99.0 H Calcium [Mass/volume] in Serum or Plasma (test code = 99833-3) 9.0 MG/DL 8.4-10.2 N Protein [Mass/volume] in Serum or Plasma (test code = 2885-2) 7.2 G/DL 6.3-8.2 N Albumin [Presence] in Serum or Plasma (test code = 80448-3) 4.2 G/DL 3.5-5.0 N Bilirubin direct and total panel [Mass/volume] - Serum or Plasma (test code = 67640-2) 0.9 MG/DL 0.2-1.3 N Aspartate aminotransferase [Enzymatic activity/volume] in Serum or Plasma (test code = 1920-8) 32 U/L 15.0-46.0 N Alkaline phosphatase [Enzymatic activity/volume] in Serum or Plasma (test code = 6768-6) 106 U/L 38.0-126.0 N Alanine aminotransferase [Enzymatic activity/volume] in Serum or Plasma (test code = 1742-6) 23 U/L 13.0-69.0 N Estimated or measured glomerular filtration rate less than 50 percent [- Reported] (test code = 75080-3) 138 mL/min/1.73m2 N [facility])Creatine kinase isoenzymes [interpretation] in 2023-01-21 03:56:00* Test Item Value Reference Range Interpretation Comme nts Creatine kinase isoenzymes [interpretation] in Serum or Plasma Narrative (test code = 49510-8) 75 U/L 30.0-135.0 N [facility])[id number] 03:38:00* Test Item Value Reference Range Interpretation Comme nts WBC (test code = WBC) 7.5 K/UL 3.5-10.9 RBC (test code = RBC) 5.36 M/UL 4.0-5.0 H HGB (test code = HGB) 15.7 G/DL 11.5-15.5 H HCT (test code = HCT) 46.3 % 34-46 H MCV (test code = MCV) 86.4 FL 80-98 MCH (test code = MCH) 29.3 PG 28-32 MCHC (test code = MCHC) 33.9 G/DL 32.5-36.5 RDW (test code = RDW) 12.8 % 11.5-14.5 PLT (test code = PLT) 277 K/UL 150-450 MPV (test code = MPV) 10.9 FL 7.4-10.4 H MANDIFF (test code = MANDIFF) NO SCAN (test code = SCAN) NO NEUT% (test code = NEUT%) 58.7 % 40-75 LYMPH% (test code = LYMPH%) 31.4 % 24-44 MONO% (test code = MONO%) 4.4 % 0-13 EOS% (test code = EOS%) 4.0 % 0-4 BASO % (test code = BASO%) 1.1 % 0-2 IG (test code = IG) 0 % 0-1 IG% (test code = IG%) 0.4 % 0-1 IG% = Metamyeloc ytes, Myelocytes, and Promyelocytes. (Immature neutrophils not including "bands".) > 3% IG indicates risk of sepsis NRBC% (test code = NRBC%) 0 /100 WBC ABS NEUT (test code = NEUT) 4.4 K/UL 1.2-7.2 CBC W Auto Differential panel - [id number] 03:38:00* Test Item Value Reference Range Interpretation Comme nts Leukocytes other [Identifier ] in Blood by Automated count (test code = 16201-6) 7.5 K/UL 3.5-10.9 N Erythrocytes [#/volume] in B lood (test code = 28940-5) 5.36 M/UL 4.0-5.0 H Hemoglobin A/Hemoglobin.tota l in Blood (test code = 4546-8) 15.7 G/DL 11.5-15.5 H Hematocrit [Volume Fraction] of Blood (test code = 84241-5) 46.3 % 34.0-46.0 H Erythrocyte mean corpuscular volume [Entitic volume] (test code = 43845-7) 86.4 FL 80.0-98.0 N Erythrocyte mean corpuscular hemoglobin [Entitic mass] (test code = 15065-4) 29.3 PG 28.0-32.0 N Erythrocyte mean corpuscular hemoglobin concentration [Mass/volume] (test code = 60949-3) 33.9 G/DL 32.5-36.5 N Erythrocyte distribution wid th [Ratio] (test code = 50829-1) 12.8 % 11.5-14.5 N Platelets panel - Blood by Automated count (test code = 80658-1) 277 K/UL 150.0-450.0 N Platelet mean volume [Entiti c volume] in Blood by Automated count (test code = 40932-6) 10.9 FL 7.4-10.4 H Neutrophils.segmented/100 leukocytes in Blood (test code = 35910-6) 58.7 % 40.0-75.0 N Lymphocytes Variant/100 leuk ocytes in Blood (test code = 76178-3) 31.4 % 24.0-44.0 N Lymphocytes+Monocytes/100 leukocytes in Blood (test code = 4662-3) 4.4 % 0.0-13.0 N Eosinophils [#/volume] in Bl ood (test code = 86081-3) 4.0 % 0.0-4.0 N Basophils [#/volume] in Bloo d (test code = 02416-7) 1.1 % 0.0-2.0 N Immature granulocytes/100 leukocytes in Blood (test code = 93300-7) 0.4 % 0.0-1.0 N Nucleated erythrocytes [#/vo lume] in Blood (test code = 49340-7) 0 /100 WBC N Neutrophils [#/volume] in Bl ood (test code = 57618-9) 4.4 K/UL 1.2-7.[address] [facility] ([place])COVID EXTENDED [id number] 01:05:00* Test Item Value Reference Range Interpretation Comme nts COVID-19, Real Time PCR-MATT (test code = COVID) Negative Negative N FT (test code = FLUAPCR) Negative (quali fier value) Negative N FT (test code = FLUBPCR) Negative (quali fier value) Negative N FT (test code = RSV) Negative (qualifier value) Negative N FIRST TEST: (test code = COVO.FT) U EMPLOYEE IN HEALTHCARE: (test code = COVO.EMP) U SYMPTOMATIC DEFINED BY CDC: (test code = COVO.SYMPH) U HOSPITALIZED: (test code = COVO.HOSP) U ADMITTED TO ICU: (test code = COVO.ICU) U RESIDENT IN CONGREGATE CARE (test code = COVO.PAYAL) U : (test code = COVO.PREG) Unk STLMLXR CHEST 2 PA [id number] 00:36:56 [facility] ([facility])Name: GATO PATEL : 1970 Sex: FEXAMINATION: XR CHEST 2 PA LATERALINDICATION: [id number]: [id number]: CT chest Oc tob2021FINDINGS:TUBES and LINES: None.LUNGS: Lungs are well inflated. Few scattered pulmonary nodules for example inthe right lower lobe are better seen on recent CT chest. Mild bilateral hilarperibronchial wall thickening remains stable. Hazy opacities and reticulation ofthe lungs, mainly in the lower lobes, unchanged. No new consolidations.PLEURA: No pleural effusion or pneumothorax.HEART AND MEDIASTINUM: The cardiomediastinal silhouette is unremarkable.BONES AND SOFT TISSUES: No acuteosseous lesion. Soft tissues areunremarkable.UPPER ABDOMEN: No free air under the diaphragm.IMPRESSION:Few bilateral indeterminate pulmonary nodules, better seen on CT chest 2021, remain concerning either for metastases or atypical infection.Recommend PET/CT for further evaluation.Persistent bilateral hilar peribronchial wall thickening and mild reticulationof the lungs suggestive of acute bronchitis, either inflammatory or infectious.This final report was electronically signed by Leana Mallory MD06/21/2022 12:31 AMDictated By: Dann CONCEPCION: 200:31STLCT ANGIO CHEST W/WO or W/ [id number] 02:06:02[facility] ([facility]/)Name: GATO PATEL : 1970 Sex: FEXAM: CT Chest WITH contrast (PE Protocol)INDICATION: [id number]: [id number]: NoneTECHNIQUE:Chest was scanned utilizing a multidetector helical scanner from the lung apexthrough the level of the diaphragm after administration of IV contrast. Thinsection reconstructions were obtained with special concentration on thepulmonary arteries. Coronal and sagittal reformations were obtained. Pulmonaryembolism protocol was performed.IV CONTRAST: 100 mL of Isovue 370COMPLICATIONS: NoneRADIATION DOSE:Total DLP: 629 mGy*cmEstimated effective dose: (DLP x 0.014 x size factor) mSvCTDIvol has been reviewed. It is below the limits set by the RadiationProtocol Committee (RPC).Dose modulation, iterative reconstruction, and/or weight based adjustmentsof the mA/kV was utilized to reducethe radiation dose to as low as reasonablyachievable.FINDINGS:LINES/ TUBES: None.LUNGS AND AIRWAYS:No filling defect is identified within the pulmonary arteriesto the segmental level. Mosaic attenuation of the lung parenchyma.Several solid pulmonary nodules:* 0.6 cm, superior segment right lower lobe, 4/62.* 0.9 cm, right lower lobe, 4/77.* 1.0 cm, medial right lower lobe, 4/97.* 0.5 cm, left apex, 4/36.PLEURA: The pleural spaces are clear.HEART AND MEDIASTINUM: 1.0 cm hypodense nodule left thyroid lobe; no furtherimaging follow-up per ACR guidelines. Prominent 0.5 cm right hilar lymph node.Prominent 0.8 cm precarinal lymph node. Otherwise no mediastinallymphadenopathy. The heart is normalin size.. There is no pericardial effusion.. Thoracic aorta and main pulmonary artery normal caliber.UPPER ABDOMEN: Hepatic steatosis. Metallic clips at the margin of the righthepatic lobe, unchanged. Cholecystectomy.BONES: The visualized bony thorax is within normal limits.SOFT TISSUES: Unremarkabl e.IMPRESSION:1. No pulmonary emboli.2. Several solid pulmonary nodules measuring up to 1.0 cm. Recommend PET/CT,tissue sampling, or follow-up chest CT in 3 months.3. Mosaic attenuation overlying parenchyma suggestive of small airways disease.4. Prominent right hilar lymph node. Attention on follow-up.This final report was electronically signed by Dr Umm Matt 06/08/2022 2:00 AMDictated By: UMM MATTDate: 06/08/2022 02:00STLMLHIGH SENSITIVITY [id number] 00:30:00* Test Item Value Reference Range Interpretation Comme nts HIGH SENSITIVITY TROPONIN (test code = TNIH) 29.8 ng/L 0.0-34.0 CHANGE IN TEST M ETHOD A change in the test method for Troponin has gone into effect. We now test for High Sensitivity Troponin. The new units of measure are ng/L, and the new 99th percentile cutoff of 34 ng/L for FEMALE and 53 ng/L for MALE. New critical values will be called for any troponin greater than or equal to 500 ng/L. STLMLPRO-BNP(B-Type Natriuretic Peptide)2022-06-08 00:30:00* Test Item Value Reference Range Interpretation Comme nts Pro-BNP(B-Peptide) (test cod e = PROBNP) 61 pg/ml 0-125 STLMLD-DIMER [id number] 00:28:00* Test Item Value Reference Range Interpretation Comme nts D DIMER (test code = D DIM) 0.53 mg/L FEU 0.19-0.50 H METHOD CHANGE: Due to the discontinued mehodology currently in use, a change in the testing method is necessary. The Reference Ranges will change dramatically, and results are obtained by the observance of clotting activation mesured on the [employer] instruments. This same methodology is currently in use for PT/INR , PTT, AND HEPARIN testing in our Labs. The D-Dimer assay is an aid in the evaluation of thromboembolic events, as in DIC, DVT, Pulmonary Embolism, and other thromboembolic diseases, and should not be used without other diagnostic measures, to properly diagnose and treat thromboembolic disease. REFERENCE RANGE: 0.19 - 0.50 mg/L FEU (Fibrinogen Equivalent Units) Cut-Off Value is: > .50 mg/L FEU Note: Results greater than (>) the Cut-Off are to be considered POSITIVE, and significant in the evaluation of thromboembolic diseases. Results less than (<) the Cut-Off are to be considered NEGATIVE, and a low probability of thromboembolic disease. [id number] 00:27:00* Test Item Value Reference Range Interpretation Comme nts Glucose (test code = GLU) 295 mg/dl 75-110 H BUN (test code = BUN) 11.0 mg/dl 6.0-17.0 Creatinine (test code = CREA) 0.8 mg/dl 0.4-1.2 Sodium (test code = NA) 136 mmol/l 137-145 L Potassium (test code = K) 3.7 mmol/l 3.5-5.0 Chloride (test code = CL) 103 mmol/l 98-107 CO2 (test code = CO2) 30 mmol/l 22-30 Calcium (test code = CALC) 9.0 mg/dl 8.4-10.2 T Protein (test code = TP) 6.7 gm/dl 5.1-8.7 Albumin (test code = ALB) 3.5 gm/dl 3.5-4.6 A/G Ratio (test code = AGRAT) 1.1 % 1.1-2.2 AST (SGOT) (test code = AST) 12 U/L 11-36 ALT (SGPT) (test code = ALT) 25 U/L 11-40 Alkaline Phos (test code = ALKP) 97 U/L 47-114 Bilirubin, Total (test code = TBIL) 0.5 mg/dl 0.2-1.2 Globulin (test code = GLOBU) 3.2 gm/dl 2.3-3.5 Anion Gap (test code = GAP) 3 mmol/l 5-15 L Calcium, Corrected (test code = CALCCORR) 9.4 mg/dl 8.4-10.2 Various formulas exist for corrected serum calcium results, each yielding different values. This corrected result was based on the formula: Corrected Calcium = SerumCalcium + [0.8 * ( 4 - SerumAlbumin)] EGFR if (test code = EGFRAA) >60 mL/min/1.73m\\ S\\2 EGFR if Non- (test code = EGFRNA) >60 mL/min/1.73m\\ S\\2 Estimated Glomerular Filtration Rate (eGFR) Reference Intervals Decision Points for 18 years and older and average body mass: >= 60 Does not exclude kidney disease. 30 - 59 Suggests moderate chronic kidney disease and indicates the need for further investigation including assessment of proteinuria and cardiovascular factors. < 30 Usually indicates a need for referral for assessment and management of chronic kidney failure. STLMLXR CHEST AP/PA 1 [id number] 00:17:16 [facility] ([facility])Name: GATO PATEL : 1970 Sex: FEXAMINATION: XR CHEST AP/PA 1 VIEWINDICATION: [id number]: DyspneaCOMPARISON: X-ray dated NovemberFINDINGS:TUBES and LINES: None.LUNGS: Normal lung volumes. Mild linear scarring or atelectasis in the rightlower lung. No consolidations.PLEURA: No pleural effusion or pneumothorax.HEART AND MEDIASTINUM: The cardiomediastinal silhouette is unremarkable.BONES AND SOFT TISSUES: No acute osseous lesion. Soft tissues areunremarkable.UPPER ABDOMEN: No free air under the diaphragm.IMPRESSION:No acute thoracic radiographic abnormality.This final report was electronically signed by Dr Umm Matt 06/08/2022 12:11AMDictated By: UMM MATTDate: 06/08/2022 00:11STLMLCBC WITH AUTO [id number] 00:08:00 * Test Item Value Reference Range Interpretation Comme nts WBC (test code = WBC) 7.23 10\\S\\3/ul 4.80-10.80 RBC (test code = RBC) 4.73 10\\S\\6/ul 4.20-5.40 Hemoglobin (test code = HGB) 13.7 gm/dl 12.0-14.0 Hematocrit (test code = HCT) 40.9 % 37.0-47.0 MCV (test code = MCV) 86.5 fL 81.0-99.0 MCH (test code = MCH) 29.0 pg 27.0-31.0 MCHC (test code = MCHC) 33.5 gm/dl 33.0-37.0 RDW (test code = RDWVC) 12.7 % 11.5-14.5 Platelet (test code = PLT) 255 10\\S\\3/ul 130-400 MPV (test code = MPV) 10.6 fL 7.4-10.4 A "NOT MEASURED" RESULTS ARE DISPLAYED WHEN THE INSTRUMENT HAS A SUPPRESSED OR UNREPORTABLE RESULT. THIS WILL MOST OFTEN HAPPEN WITH THE MPV WHEN THERE IS AN ABNORMAL PLATELET DISTRIBUTION DUE TO A CRITICAL LOW VALUE OR PLATELET CLUMPING. THE RDW MAY BE SUPPRESSED IF THERE ARE MULTIPLE PEAKS PRESENT ON THE RBC HISTOGRAM. IN THIS CASE, A MANUAL REVIEW OF THE SLIDE WILL BE PERFORMED, AND RBC MORPHOLOGY WILL BE NOTED ON THE REPORT. NE% (test code = NE) 47.6 % 42.0-75.0 LY% (test code = LY) 41.5 % 13.0-42.0 MO% (test code = MO) 4.6 % 4.0-14.0 EO% (test code = EO) 5.1 % 1.0-5.0 H BA% (test code = BA) 0.8 % 0.0-3.0 IG% (test code = IG%) 0.4 % 0.0-0.4 STLMLUS ABDOMEN [id number] 10:27:14Abdominal ultrasound:Date of exam: 02/21/2019History: Right upper quadrant painThe liver is normal in size and echogenicity. No focal parenchymal abnormalityor intrahepatic biliary duct dilatation is identified. Hepatopedal flow is notedin the portal vein.The gallbladder is surgically absent. The common duct was not dilated.The spleen appeared unremarkable. The visualized pancreas, IVC and aorta show nosignificant abnormality. No renal abnormality is identified.There is no ascites.Impression: Status post cholecystectomy, otherwise unremarkable abdominalultrasound.This final report was electronically signed by Dr Angel Lewis MD 02/21/201910:21 AMDictated By: ANGEL LEWISDate: 02/21/2019 10:21[facility]PELVIS W/[id number] 22:13:52EXAMINATION: CT of the abdomen and pelvis with contrast.TECHNIQUE:Helical images of the abdomen andpelvis were performed from the lung bases tothe lesser trochanters after the intravenous administration of 100 cc ofOmnipaque 300 and the oral administration of none. Coronal and sagittalreformatted images were obtained.Dose modulation, iterative reconstruction,and/or weight based adjustment of themA/kV was utilized to reduce the radiationdose to as low as reasonably achievable.COMPARISON: None.CLINICAL HISTORY:Abdominal painDISCUSSION:ABDOMEN/PELVIS:LOWER THORAX:Unremarkable.HEPATOBILIARY: Nofocal hepatic lesions. No intra-or extrahepatic biliaryductal dilation. Cholecystectomy.SPLEEN: No s plenomegaly.PANCREAS: No focal masses or ductal dilatation.ADRENALS: No adrenal nodules.KIDNEYS/URETERS: No hydronephrosis, stones, or solid mass lesions.PELVIC ORGANS/BLADDER: Bladder is unremarkable. Hysterectomy.PERITONEUM/RETROPERITONEUM: No free air or fluid.LYMPH NODES: No intra-abdominal, retroperitoneal, pelvic or inguinallymphadenopathy.VESSELS: Unremarkable.GI TRACT: No distention or wall thickening.BONES AND SOFT TISSUE: No bony destructive lesions. No soft tissueabnormalities.IMPRESSION:No acute CT finding.This final report was electronically signed by Dr Chuy Larson MD 02/19/201910:07 PMDictated By: LUCINDA LARSONWDate: 02/19/2019 22:07[facility] [id number] 20:52:00* Test Item Value Reference Range Interpretation Comme nts Lipase (test code = LIPA) 224 U/L 8-223 H [place] [id number] 20:52:00* Test Item Value Reference Range Interpretation Comme nts Glucose (test code = GLU) 179 mg/dl 75-110 H BUN (test code = BUN) 12.0 mg/dl 6.0-17.0 Creatinine (test code = CREA) 0.7 mg/dl 0.4-1.2 Sodium (test code = NA) 139 mmol/l 137-145 Potassium (test code = K) 3.9 mmol/l 3.5-5.0 Chloride (test code = CL) 106 mmol/l 98-107 CO2 (test code = CO2) 28 mmol/l 22-30 Calcium (test code = CALC) 8.7 mg/dl 8.4-10.2 T Protein (test code = TP) 7.1 gm/dl 5.1-8.7 Albumin (test code = ALB) 3.4 gm/dl 3.5-4.6 L A/G Ratio (test code = AGRAT) 0.9 % 1.1-2.2 L AST (SGOT) (test code = AST) 12 U/L 11-36 ALT (SGPT) (test code = ALT) 24 U/L 11-40 Alkaline Phos (test code = ALKP) 93 U/L 47-114 Total Bilirubin (test code = TBIL) 0.2 mg/dl 0.2-1.2 Globulin (test code = GLOBU) 3.7 gm/dl 2.3-3.5 H Calcium, Corrected (test code = CALCCORR) 9.2 mg/dl 8.4-10.2 Various formulas exist for corrected serum calcium results, each yielding different values. This corrected result was based on the formula: Corrected Calcium = SerumCalcium + [0.8 * ( 4 - SerumAlbumin)] EGFR if (test code = EGFRAA) >60 mL/min/1.73m\\ S\\2 EGFR if Non- (test code = EGFRNA) >60 mL/min/1.73m\\ S\\2 Estimated Glomerular Filtration Rate (eGFR) Reference Intervals Decision Points for 18 years and older and average body mass: >= 60 Does not exclude kidney disease. 30 - 59 Suggests moderate chronic kidney disease and indicates the need for further investigation including assessment of proteinuria and cardiovascular factors. < 30 Usually indicates a need for referral for assessment and management of chronic kidney failure. [facility] [id number] 20:30:00 * Test Item Value Reference Range Interpretation Comme nts Color (test code = UCOLR) LT. YELLOW Clarity (test code = UCLAR) CLEAR Glucose (test code = UGLUC) NEGATIVE NEGATIVE N Bilirubin (test code = UBILI) NEGATIVE NEGATIVE N Ketones (test code = UKET) NEGATIVE NEGATIVE N Specific [place] (test code = USPGR) 1.015 1.005-1.030 A Blood (test code = UBLD) NEGATIVE NEGATIVE N PH (test code = UPH) 6.0 4.5-8.0 A Protein (test code = UPROT) NEGATIVE NEGATIVE N Urobilinogen (test code = U UROB) 0.2 >0.2 N Nitrite (test code = UNITR) NEGATIVE NEGATIVE N Leukocyte Esterase (test cod e = ULEUK) NEGATIVE NEGATIVE N WBC (test code = WBCUR) 1-3 0-5 A RBC (test code = RBCUR) None Seen 0-5 A Epithial Cells (test code = U EPI) 20-40 0-10 A Mucous (test code = UMUC) Small None Seen A Bacteria (test code = UBACT) 3+ None Seen,Trace A [facility] WITH AUTO [id number] 20:28:00* Test Item Value Reference Range Interpretation Comme nts WBC (test code = WBC) 8.79 10\\S\\3/ul 4.80-10.80 RBC (test code = RBC) 4.47 10\\S\\6/ul 4.20-5.40 Hemoglobin (test code = HGB) 13.6 gm/dl 12.0-14.0 Hematocrit (test code = HCT) 40.6 % 37.0-47.0 MCV (test code = MCV) 90.8 fL 81.0-99.0 MCH (test code = MCH) 30.4 pg 27.0-31.0 MCHC (test code = MCHC) 33.5 gm/dl 33.0-37.0 RDW (test code = RDWVC) 13.0 % 11.5-14.5 Platelet (test code = PLT) 291 10\\S\\3/ul 130-400 MPV (test code = MPV) 10.5 fL 7.4-10.4 A "NOT MEASURED" RESULTS ARE DISPLAYED WHEN THE INSTRUMENT HAS A SUPPRESSED OR UNREPORTABLE RESULT. THIS WILL MOST OFTEN HAPPEN WITH THE MPV WHEN THERE IS AN ABNORMAL PLATELET DISTRIBUTION DUE TO A CRITICAL LOW VALUE OR PLATELET CLUMPING. THE RDW MAY BE SUPPRESSED IF THERE ARE MULTIPLE PEAKS PRESENT ON THE RBC HISTOGRAM. IN THIS CASE, A MANUAL REVIEW OF THE SLIDE WILL BE PERFORMED, AND RBC MORPHOLOGY WILL BE NOTED ON THE REPORT. NE% (test code = NE) 54.4 % 42.0-75.0 LY% (test code = LY) 35.3 % 13.0-42.0 MO% (test code = MO) 4.6 % 4.0-14.0 EO% (test code = EO) 4.2 % 1.0-5.0 BA% (test code = BA) 1.3 % 0.0-3.0 IG% (test code = IG%) 0.2 % 0.0-0.[address] [id number] 19:54:00* Test Item Value Reference Range Interpretation Comme nts Glucose (test code = GLU) 265 mg/dl 75-110 H BUN (test code = BUN) 10.0 mg/dl 6.0-17.0 Creatinine (test code = CREA) 0.8 mg/dl 0.4-1.2 Sodium (test code = NA) 141 mmol/l 137-145 Potassium (test code = K) 4.1 mmol/l 3.5-5.0 Chloride (test code = CL) 105 mmol/l 98-107 CO2 (test code = CO2) 31 mmol/l 22-30 H Calcium (test code = CALC) 8.7 mg/dl 8.4-10.2 T Protein (test code = TP) 7.2 gm/dl 5.1-8.7 Albumin (test code = ALB) 3.4 gm/dl 3.5-4.6 L A/G Ratio (test code = AGRAT) 0.9 % 1.1-2.2 L AST (SGOT) (test code = AST) 10 U/L 11-36 L ALT (SGPT) (test code = ALT) 19 U/L 11-40 Alkaline Phos (test code = ALKP) 102 U/L 47-114 Total Bilirubin (test code = TBIL) 0.3 mg/dl 0.2-1.2 Globulin (test code = GLOBU) 3.8 gm/dl 2.3-3.5 H Calcium, Corrected (test code = CALCCORR) 9.2 mg/dl 8.4-10.2 Various formulas exist for corrected serum calcium results, each yielding different values. This corrected result was based on the formula: Corrected Calcium = SerumCalcium + [0.8 * ( 4 - SerumAlbumin)] EGFR if (test code = EGFRAA) >60 mL/min/1.73m\\ S\\2 EGFR if Non- (test code = EGFRNA) >60 mL/min/1.73m\\ S\\2 Estimated Glomerular Filtration Rate (eGFR) Reference Intervals Decision Points for 18 years and older and average body mass: >= 60 Does not exclude kidney disease. 30 - 59 Suggests moderate chronic kidney disease and indicates the need for further investigation including assessment of proteinuria and cardiovascular factors. < 30 Usually indicates a need for referral for assessment and management of chronic kidney failure. [facility]IN[facility] WITH [id number] 19:47:00 * Test Item Value Reference Range Interpretation Comme nts Color (test code = UCOLR) LT. YELLOW Clarity (test code = UCLAR) Sl Cloudy Glucose (test code = UGLUC) >=1000 NEGATIVE A Bilirubin (test code = UBILI) NEGATIVE NEGATIVE N Ketones (test code = UKET) NEGATIVE NEGATIVE N Specific [place] (test code = USPGR) 1.010 1.005-1.030 A Blood (test code = UBLD) NEGATIVE NEGATIVE N PH (test code = UPH) 6.5 4.5-8.0 A Protein (test code = UPROT) NEGATIVE NEGATIVE N Urobilinogen (test code = U UROB) 0.2 >0.2 N Nitrite (test code = UNITR) NEGATIVE NEGATIVE N Leukocyte Esterase (test cod e = ULEUK) NEGATIVE NEGATIVE N WBC (test code = WBCUR) 5-10 0-5 A RBC (test code = RBCUR) None Seen 0-5 A Epithial Cells (test code = U EPI) 5-10 0-10 A Bacteria (test code = UBACT) 3+ None Seen,Trace A [facility] Center[facility] WITH AUTO [id number] 19:37:00* Test Item Value Reference Range Interpretation Comme nts WBC (test code = WBC) 7.80 10\\S\\3/ul 4.80-10.80 RBC (test code = RBC) 4.52 10\\S\\6/ul 4.20-5.40 Hemoglobin (test code = HGB) 13.4 gm/dl 12.0-14.0 Hematocrit (test code = HCT) 40.6 % 37.0-47.0 MCV (test code = MCV) 89.8 fL 81.0-99.0 MCH (test code = MCH) 29.6 pg 27.0-31.0 MCHC (test code = MCHC) 33.0 gm/dl 33.0-37.0 RDW (test code = RDWVC) 13.1 % 11.5-14.5 Platelet (test code = PLT) 271 10\\S\\3/ul 130-400 MPV (test code = MPV) 10.4 fL 7.4-10.4 A NE% (test code = NE) 59.8 % 42.0-75.0 LY% (test code = LY) 29.7 % 13.0-42.0 MO% (test code = MO) 5.1 % 4.0-14.0 EO% (test code = EO) 4.4 % 1.0-5.0 BA% (test code = BA) 0.6 % 0.0-3.0 IG% (test code = IG%) 0.4 % 0.0-0.[address] [facility] CenterTROPONIN-I [id number] 11:42:00* Test Item Value Reference Range Interpretation Comme nts Troponin-I (test code = TROP) <0.015 ng/ml 0.000-0.034 N The 99th Percent ile URL is 0.034 ng/mL. The Joint Society of Cardiology/[place] [employer] (ESC/ACC) and the National Academy of Clinical Biochemistry Standards of Laboratory Practices (NACB) recommends that the diagnosis of AMI includes the presence of clinical history suggestive of Acute Coronary Syndrome (ACS) and a maximum concentration of cardiac troponin exceeding the 99th percentile of a normal reference population [upper reference limit (URL)] on at least one occasion during the first 24 hours after the clinical event. [facility] CenterXR CHEST 2 PA [id number] 13:38:39PA and lateral chest:Exam Date: 12/03/2017Clinical Indication: BronchitisThe lungs are clear. The cardiomediastinal silhouette is within normal limits.There are no significant bony abnormalities.Impression: No active cardiopulmonary disease.This final report was electronically signed by Dr Angel Lewis MD 12/03/20171:32 PMDictated By: ANGEL LEWISDate: 12/03/2017 13:38[facility] US VEINS LEG UNIL [id number] 03:38:50EXAM: US VEINS LEG [facility] DopplerINDICATION: [id number]: NoneTECHNIQUE: Michaels scale, color Doppler and spectral waveform analysis of the rightlower extremity deep venous system was performed.FINDINGS:Common Femoral:Fully compressible with normal spontaneous waveforms.Proximal Greater Saphenous:Fully compressible.Femoral:Fully compressible with normal spontaneous waveforms. Normal response toaugmentation.Proximal Deep Femoral:Normal spontaneous waveforms.Popliteal:Fully compressiblewith normal spontaneous waveforms.No thrombus in the visualized calf veins.IMPRESSION:No evidence of deep venous thrombosis in the right lower extremityThis final report was electronically signed by Dr Lata Mireles MD 07/10/20173:32 AMDictated By: TOSHIA MIRELESate: 07/10/2017 03:38MMRESE[facility] [id number] 02:33:00* Test Item Value Reference Range Interpretation Comme nts aPTT (test code = PTT) 25.4 seconds 25.3-35.7 [facility] [place][note 2] AND [id number] 02:33:00* Test Item Value Reference Range Interpretation Comme nts Protime (test code = PT) 10.7 seconds 9.0-11.8 INR (test code = INR) 1.0 0.9-1.1 INR results are intended ONLY to monitor Oral Anticoagulant therapy in stablized patients. The INR Therapeutic Range is 2.0 - 3.0 Patients with a mechanical heart, the INR Range is 2.5 - 3.5 [facility] 02:30[facility]* Test Item Value Reference Range Interpretation Comme nts Glucose (test code = GLU) 275 mg/dl 75-110 H BUN (test code = BUN) 10.0 mg/dl 6.0-17.0 Creatinine (test code = CREA) 0.6 mg/dl 0.4-1.2 Sodium (test code = NA) 137 mmol/l 137-145 Potassium (test code = K) 3.9 mmol/l 3.5-5.0 Chloride (test code = CL) 101 mmol/l 98-107 CO2 (test code = CO2) 31 mmol/l 22-30 H Anion Gap (test code = GAP) 4 Calcium (test code = CALC) 9.2 mg/dl 8.4-10.2 T Protein (test code = TP) 7.1 gm/dl 5.1-8.7 Albumin (test code = ALB) 4.0 gm/dl 3.5-4.6 A/G Ratio (test code = AGRAT) 1.3 % 1.1-2.2 AST (SGOT) (test code = AST) 24 U/L 11-36 ALT (SGPT) (test code = ALT) 31 U/L 11-40 Alkaline Phos (test code = ALKP) 84 U/L 47-114 Total Bilirubin (test code = TBIL) 0.4 mg/dl 0.2-1.2 Globulin (test code = GLOBU) 3.1 gm/dl 2.3-3.5 Calcium, Corrected (test code = CALCCORR) 9.2 mg/dl 8.4-10.2 Various formulas exist for corrected serum calcium results, each yielding different values. This corrected result was based on the formula: Corrected Calcium = SerumCalcium + [0.8 * ( 4 - SerumAlbumin)] EGFR if (test code = EGFRAA) >60 mL/min/1.73m\\ S\\2 EGFR if Non- (test code = EGFRNA) >60 mL/min/1.73m\\ S\\2 Estimated Glomerular Filtration Rate (eGFR) Reference Intervals Decision Points for 18 years and older and average body mass: >= 60 Does not exclude kidney disease. 30 - 59 Suggests moderate chronic kidney disease and indicates the need for further investigation including assessment of proteinuria and cardiovascular factors. < 30 Usually indicates a need for referral for assessment and management of chronic kidney failure. [facility] WITH AUTO [id number] 02:25:00* Test Item Value Reference Range Interpretation Comme nts WBC (test code = WBC) 9.76 10\\S\\3/ul 4.80-10.80 RBC (test code = RBC) 4.52 10\\S\\6/ul 4.20-5.40 Hemoglobin (test code = HGB) 13.5 gm/dl 12.0-14.0 Hematocrit (test code = HCT) 40.6 % 37.0-47.0 MCV (test code = MCV) 89.8 fL 81.0-99.0 MCH (test code = MCH) 29.9 pg 27.0-31.0 MCHC (test code = MCHC) 33.3 gm/dl 33.0-37.0 RDW (test code = RDWVC) 13.2 % 11.5-14.5 Platelet (test code = PLT) 266 10\\S\\3/ul 130-400 MPV (test code = MPV) 10.6 fL 7.4-10.4 A "NOT MEASURED" RESULTS ARE DISPLAYED WHEN THE INSTRUMENT HAS A SUPPRESSED OR UNREPORTABLE RESULT. THIS WILL MOST OFTEN HAPPEN WITH THE MPV WHEN THERE IS AN ABNORMAL PLATELET DISTRIBUTION DUE TO A CRITICAL LOW VALUE OR PLATELET CLUMPING. THE RDW MAY BE SUPPRESSED IF THERE ARE MULTIPLE PEAKS PRESENT ON THE RBC HISTOGRAM. IN THIS CASE, A MANUAL REVIEW OF THE SLIDE WILL BE PERFORMED, AND RBC MORPHOLOGY WILL BE NOTED ON THE REPORT. NE% (test code = NE) 56.3 % 42.0-75.0 LY% (test code = LY) 34.6 % 13.0-42.0 MO% (test code = MO) 5.5 % 4.0-14.0 EO% (test code = EO) 2.8 % 1.0-3.0 BA% (test code = BA) 0.7 % 1.0-3.0 L IG% (test code = IG%) 0.1 % 0.0-0.4 [facility] [id number] 21:18:00* Test Item Value Reference Range Interpretation Comme nts Color (test code = UCOLR) Yellow Clarity (test code = UCLAR) Turbid Glucose (test code = UGLUC) 100 NEGATIVE A Bilirubin (test code = UBILI) NEGATIVE NEGATIVE N Ketones (test code = UKET) NEGATIVE NEGATIVE N Specific [place] (test code = USPGR) >=1.030 1.005-1.030 A Blood (test code = UBLD) NEGATIVE NEGATIVE N PH (test code = UPH) 5.5 4.5-8.0 A Protein (test code = UPROT) NEGATIVE NEGATIVE N Urobilinogen (test code = U UROB) 1.0 >0.2 A Nitrite (test code = UNITR) NEGATIVE NEGATIVE N Leukocyte Esterase (test code = ULEUK) NEGATIVE NEGATIVE N WBC (test code = WBCUR) 0-1 0-5 A RBC (test code = RBCUR) 0-2 0-5 A Epithial Cells (test code = U EPI) 5-10 0-10 A Mucous (test code = UMUC) None Seen None Seen N Bacteria (test code = UBACT) None Seen None Seen,Trace N Crystals Urine (test code = URCRYS) Many Amorphous Sediment Few Uric Acid None Seen A [facility] CenterPREGNANCY TEST, Serum [id number] 21:07:00* Test Item Value Reference Range Interpretation Comme nts (Serum) (test code = PREGS) Negative Negative N [facility] CenterLIPASE, [id number] 21:04:00* Test Item Value Reference Range Interpretation Comme [facility] Lipase (test code = LIPA) 47 U/L 8-[address] [facility] CenterCMP2017-07-30 21:04:00* Test Item Value Reference Range Interpretation Comme [facility] Glucose (test code = GLU) 198 mg/dl 75-110 H BUN (test code = BUN) 12.0 mg/dl 6.0-17.0 Creatinine (test code = CREA) 0.8 mg/dl 0.4-1.2 Sodium (test code = NA) 144 mmol/l 137-145 Potassium (test code = K) 3.8 mmol/l 3.5-5.0 Chloride (test code = CL) 106 mmol/l 98-107 CO2 (test code = CO2) 28 mmol/l 22-30 Calcium (test code = CALC) 9.1 mg/dl 8.4-10.2 T Protein (test code = TP) 7.4 gm/dl 5.1-8.7 Albumin (test code = ALB) 4.1 gm/dl 3.5-4.6 A/G Ratio (test code = AGRAT) 1.2 % 1.1-2.2 AST (SGOT) (test code = AST) 31 U/L 11-36 ALT (SGPT) (test code = ALT) 30 U/L 11-40 Alkaline Phos (test code = ALKP) 90 U/L 47-114 Total Bilirubin (test code = TBIL) 0.6 mg/dl 0.2-1.2 Globulin (test code = GLOBU) 3.3 gm/dl 2.3-3.5 Anion Gap (test code = GAP) 11 Calcium, Corrected (test code = CALCCORR) 9.0 mg/dl 8.4-10.2 Various formulas exist for corrected serum calcium results, each yielding different values. This corrected result was based on the formula: Corrected Calcium = SerumCalcium + [0.8 * ( 4 - SerumAlbumin)] EGFR if (test code = EGFRAA) >60 mL/min/1.73m\\ S\\2 EGFR if Non- (test code = EGFRNA) >60 mL/min/1.73m\\ S\\2 Estimated Glomerular Filtration Rate (eGFR) Reference Intervals Decision Points for 18 years and older and average body mass: >= 60 Does not exclude kidney disease. 30 - 59 Suggests moderate chronic kidney disease and indicates the need for further investigation including assessment of proteinuria and cardiovascular factors. < 30 Usually indicates a need for referral for assessment and management of chronic kidney failure. [facility] WITH AUTO [id number] 20:51:00* Test Item Value Reference Range Interpretation Comme nts WBC (test code = WBC) 8.2 k/ul 4.8-10.8 RBC (test code = RBC) 4.57 Millions/ul 4.20-5.40 Hemoglobin (test code = HGB) 13.5 gm/dl 12.0-14.0 Hematocrit (test code = HCT) 40.6 % 37.0-47.0 MCV (test code = MCV) 88.8 fL 81.0-99.0 MCH (test code = MCH) 29.6 pg 27.0-31.0 MCHC (test code = MCHC) 33.4 gm/dl 33.0-37.0 RDW (test code = RDWVC) 13.5 % 11.5-14.5 Platelet (test code = PLT) 278 k/ul 130-400 MPV (test code = MPV) 8.5 fL 7.4-10.4 NE% (test code = NE) 55.5 % 42.0-75.0 LY% (test code = LY) 36.4 % 13.0-42.0 MO% (test code = MO) 4.2 % 4.0-14.0 EO% (test code = EO) 3.3 % 1.0-3.0 H BA% (test code = BA) 0.6 % 1.0-3.0 L NRBC, Auto (test code = NRBC_AUTO) 0 /100WBC 0-0 [facility] [id number] 21:12:00* Test Item Value Reference Range Interpretation Comme nts Troponin-I (test code = TROP) <0.012 ng/ml 0.000-0.034 N The 99th Percent ile URL is 0.034 ng/mL. The Joint Society of Cardiology/[place] [employer]iology (ESC/ACC) and the National Academy of Clinical Biochemistry Standards of Laboratory Practices (NACB) recommends that the diagnosis of AMI includes the presence of clinical history suggestive of Acute Coronary Syndrome (ACS) and a maximum concentration of cardiac troponin exceeding the 99th percentile of a normal reference population [upper reference limit (URL)] on at least one occasion during the first 24 hours after the clinical event. [facility] CenterPRO-BNP(B-Type Natriuretic Peptide)2017-01-21 19:04:00* Test Item Value Reference Range Interpretation Comme nts Pro-BNP(B-Peptide) (test cod e = PROBNP) 73 pg/ml 0-125 [facility] [id number] 19:04:00* Test Item Value Reference Range Interpretation Comme nts Troponin-I (test code = TROP) <0.012 ng/ml 0.000-0.034 N The 99th Percent ile URL is 0.034 ng/mL. The Joint Society of Cardiology/[place] College [employer]iology (ESC/ACC) and the National Academy of Clinical Biochemistry Standards of Laboratory Practices (NACB) recommends that the diagnosis of AMI includes the presence of clinical history suggestive of Acute Coronary Syndrome (ACS) and a maximum concentration of cardiac troponin exceeding the 99th percentile of a normal reference population [upper reference limit (URL)] on at least one occasion during the first 24 hours after the clinical event. [facility] CenterCPK2017-05-28 19:04:00* Test Item Value Reference Range Interpretation Comme nts CPK (test code = CPK) 48 U/L 30-135 [facility]2017-05-28 19:04:00* Test Item Value Reference Range Interpretation Comme nts CKMB (test code = CKMB) 0.29 ng/ml 0.00-2.[address] [facility] CenterPTT2017-05-28 18:55:00* Test Item Value Reference Range Interpretation Comme nts aPTT (test code = PTT) 25.2 seconds 25.3-35.7 L [facility] [place][note 2] AND [id number] 18:55:00* Test Item Value Reference Range Interpretation Comme nts Protime (test code = PT) 10.5 seconds 9.0-11.8 INR (test code = INR) 1.0 0.9-1.1 INR results are intended ONLY to monitor Oral Anticoagulant therapy in stablized patients. The INR Therapeutic Range is 2.0 - 3.0 Patients with a mechanical heart, the INR Range is 2.5 - 3.[address] [facility] CenterD-DIMER [id number] 18:55:00* Test Item Value Reference Range Interpretation Comme nts D DIMER (test code = D DIM) 0.47 mg/L FEU 0.19-0.50 METHOD CHANGE: Due to the discontinued mehodology currently in use, a change in the testing method is necessary. The Reference Ranges will change dramatically, and results are obtained by the observance of clotting activation mesured on the Sysmex instruments. This same methodology is currently in use for PT/INR , PTT, AND HEPARIN testing in our Labs. The D-Dimer assay is an aid in the evaluation of thromboembolic events, as in DIC, DVT, Pulmonary Embolism, and other thromboembolic diseases, and should not be used without other diagnostic measures, to properly diagnose and treat thromboembolic disease. REFERENCE RANGE: 0.19 - 0.50 mg/L FEU (Fibrinogen Equivalent Units) Cut-Off Value is: > .50 mg/L FEU Note: Results greater than (>) the Cut-Off are to be considered POSITIVE, and significant in the evaluation of thromboembolic diseases. Results less than (<) the Cut-Off are to be considered NEGATIVE, and a low probability of thromboembolic disease. [facility] CenterMAGNESIUM2017-05-28 18:53:00* Test Item Value Reference Range Interpretation Comme nts Magnesium (test code = MG) 1.8 mg/dl 1.6-2.[address] [facility] CenterCMP2017-05-28 18:51:00* Test Item Value Reference Range Interpretation Comme nts Glucose (test code = GLU) 156 mg/dl 75-110 H BUN (test code = BUN) 15.0 mg/dl 6.0-17.0 Creatinine (test code = CREA) 0.6 mg/dl 0.4-1.2 Sodium (test code = NA) 145 mmol/l 137-145 Potassium (test code = K) 4.4 mmol/l 3.5-5.0 Chloride (test code = CL) 102 mmol/l 98-107 CO2 (test code = CO2) 29 mmol/l 22-30 Calcium (test code = CALC) 9.9 mg/dl 8.4-10.2 T Protein (test code = TP) 7.5 gm/dl 5.1-8.7 Albumin (test code = ALB) 4.0 gm/dl 3.5-4.6 A/G Ratio (test code = AGRAT) 1.1 % 1.1-2.2 AST (SGOT) (test code = AST) 18 U/L 11-36 ALT (SGPT) (test code = ALT) 28 U/L 11-40 Alkaline Phos (test code = ALKP) 87 U/L 47-114 Total Bilirubin (test code = TBIL) 0.3 mg/dl 0.2-1.2 Globulin (test code = GLOBU) 3.5 gm/dl 2.3-3.5 Anion Gap (test code = GAP) 14 Calcium, Corrected (test code = CALCCORR) 9.9 mg/dl 8.4-10.2 Various formulas exist for corrected serum calcium results, each yielding different values. This corrected result was based on the formula: Corrected Calcium = SerumCalcium + [0.8 * ( 4 - SerumAlbumin)] EGFR if (test code = EGFRAA) >60 mL/min/1.73m\\ S\\2 EGFR if Non- (test code = EGFRNA) >60 mL/min/1.73m\\ S\\2 Estimated Glomerular Filtration Rate (eGFR) Reference Intervals Decision Points for 18 years and older and average body mass: >= 60 Does not exclude kidney disease. 30 - 59 Suggests moderate chronic kidney disease and indicates the need for further investigation including assessment of proteinuria and cardiovascular factors. < 30 Usually indicates a need for referral for assessment and management of chronic kidney failure. [facility] CenterCBC WITH AUTO [id number] 18:44:00* Test Item Value Reference Range Interpretation Comme nts WBC (test code = WBC) 8.7 k/ul 4.8-10.8 RBC (test code = RBC) 4.88 Millions/ul 4.20-5.40 Hemoglobin (test code = HGB) 14.5 gm/dl 12.0-14.0 H Hematocrit (test code = HCT) 42.8 % 37.0-47.0 MCV (test code = MCV) 87.8 fL 81.0-99.0 MCH (test code = MCH) 29.8 pg 27.0-31.0 MCHC (test code = MCHC) 33.9 gm/dl 33.0-37.0 RDW (test code = RDWVC) 13.5 % 11.5-14.5 Platelet (test code = PLT) 271 k/ul 130-400 MPV (test code = MPV) 9.0 fL 7.4-10.4 NE% (test code = NE) 49.5 % 42.0-75.0 LY% (test code = LY) 41.0 % 13.0-42.0 MO% (test code = MO) 3.6 % 4.0-14.0 L EO% (test code = EO) 5.4 % 1.0-3.0 H BA% (test code = BA) 0.5 % 1.0-3.0 L NRBC, Auto (test code = NRBC_AUTO) 0 /100WBC 0-[address] [facility] Consult Notes Date/Time Note Provider Source 2023-01-23 15:51:43 Referring Physician Reason for consult: Medical management HPI: This blanquita 52 year old female who presented to the ED complaining of suicide ideation with plan to overdose. Patient told her children that she was going to kill herself by overdosing on medication. Children called the police. Patient has 7 children and is struggling with a long illness.Her symptoms are moderate in severity with no modifying or alleviating factors. Pt denies any chest pain, fever, chills, or syncope episodes. We have been consulted for medical management at this time. Past medical history:Diabetes, Fibromyalgia, HTN Past surgical history: None reported Social history: Denies alcohol, tobacco and IDU. Family history: Reviewed and non-contributory ROS: 10 pt. ROS conducted and deemed negative except what is listed in HPI. Physical Examination: General: Awake, No acute distress noted. HEENT: Unremarkable Lungs: Clear breath sounds Heart: Regular rhythm, normal rate Abdomen: Soft non tender, non distended Extremities: No clubbing, edema or cyanosis. Neuro: Alert and Oriented X 3. Skin: Warm, dry, and intact. I have personally reviewed labs, VS, Imaging and Medications for this patient. ASSESSMENT: 1. DM 2 with Neuropathy 2. Fibromyalgia 3. HTN PLAN: 01/22 Chart reviewed and patient assessed. DVT and GI prophylaxis. Labs and vitals have been reviewed. A1C11.2.Elevated BG readings. Patient states no one currently handles her DM. States Metformin makes her stomach upset and Trulicity was expensive. A previous physician she hasn't seen in a while started her on this. Will start on Lantus daily and increase sliding scale. Add Atorvastatin.Will need to FU OP with PCP for management. We will continue to follow as needed. Patient Problems/Allergies Allergies Valium - Nausea Lab Results 1116 Chemistry GLUCOSE 257 (H) 0631 Chemistry GLUCOSE 261 (H) 1915 Chemistry GLUCOSE 253 (H) 1602 Chemistry GLUCOSE 318 (H) Vital Signs 1511 T 97.8 HR 65 RR 17 BP 132 / 82 O2Sat 96 0700 T 97.7 HR 75 RR 17 BP 138 / 88 O2Sat 95 Intake and Output previous current encounter day day cumulative Intake 1880 0 2292 Output - - - Balance 1880 0 2292 Active Medications gabapentin 300 MG PO TID nerve pain sertraline (zoloft) 50 MG PO QAM insulin, glargine 100 UNIT/ML 10 UN SQ QHS insulin regular (humulin) 100 UNIT/ML Sliding Scale Dose SQ ACHS lisinopril 40 MG PO DAILY 40 MG = 2 TABLETS D5W 1000 ML IV PRN 100 ML/HR for HYPOGLYCEMIA Hypoglycemia Protocol For BG <70; start after D50 given if NPO or unable to swallow D50W INJ SYRINGE 25 ML IVP PRN for HYPOGLYCEMIA For BG 50-69 in ALERT patient if NPO or unable to swallow. May repeat if BG less than 70 after 15 D50W INJ SYRINGE 50 ML IVP PRN for HYPOGLYCEMIA For BG < 50 in ALERT patient if NPO or unable to swallow or any BG if patient has decreased level of consciousness Repeat if BG less than 70 after 15 min glucagon INJ 1 MG IM PRN for HYPOGLYCEMIA For BG < 70 and patient has no IV access Do not repeat glucose ORAL 40 % 2 TBE PO PRN for HYPOGLYCEMIA For BG < 50 mg/dL in ALERT patient if able to swallow (preferred). May repeat if BG remains less glucose ORAL 40 % 1 TBE PO PRN for HYPOGLYCEMIA For BG 50-69 mg/dL in ALERT patients if able to swallow (preferred). May repeat if BG remains hydrOXYzine PAMOATE (Vistaril) 25 MG PO TIDPRN for ANXIETY LORazepam 2 MG PO TIDPRN for AGITATION MAY GIVE 15 MIN AFTER HALDOL IF STILL AGITATED haloperidol 5 MG PO TIDPRN for AGITATION traZODone 50 MG PO QHSPRN for SLEEP carmex lip balm 1 EA 1 SANCHO TOP PRN for OTHER- TYPE REASON IN COMMENTS multivitamin 1 TAB PO DAILY ondansetron 4 MG PO Q6PRN for NAUSEA/VOMITING cloNIDine (catapres) 0.1 MG PO TIDPRN for HYPERTENSION for BP > 140/90 bismuth subsalicylate TAB 262 MG 2 TAB PO Q1PRN for UPSET STOMACH (not to exceed 8 doses per day) magnesium hydroxide (MOM) 400 MG/5 ML 60 ML PO DAILYPRN for CONSTIPATION acetaminophen ES 500 MG PO Q6PRN for MILD PAIN (not to exceed 4 grams in 24 hours) Electronically signed by IOANA ADAM V on [address] 2023-01-22 14:19:[address] Henry Subjective/Physical Exam Chief complaint: Suicidal Ideations HPI: This blanquita 52 year old female who presented to the ED complaining of suicide ideation with plan to overdose. Patient told her children that she was going to kill herself by overdosing on medication. Children called the police. Patient has 7 children and is struggling with a long illness.Her symptoms are moderate in severity with no modifying or alleviating factors. Pt denies any chest pain, fever, chills, or syncope episodes. We have been consulted for medical management at this time. Past medical history:Diabetes, Fibromyalgia, HTN Past surgical history: None reported Social history: Denies alcohol, tobacco and IDU. Family history: Reviewed and non-contributory ROS: 10 pt. ROS conducted and deemed negative except what is listed in HPI. Physical Examination: General: Awake, No acute distress noted. HEENT: NC/AT. Lungs: CTA, bilaterally. Heart: S1, S2. No murmur, click, or rub. Abdomen: BS+, soft non tender, non distended Extremities: No clubbing, edema or cyanosis. Neuro: Alert and Oriented X 3. Skin: Warm, dry, and intact. I have personally reviewed labs, VS, Imaging and Medications for this patient. ASSESSMENT: 1. DM 2. Fibromyalgia 3. HTN 4. Suicidal Ideations 5. Depression PLAN: 01/22 Chart reviewed and patient assessed. DVT and GI prophylaxis. Labs and vitals have been reviewed. A1C 11.2. Elevated BG readings. Patient states no one currently handles her DM. States Metformin makes her stomach upset and Trulicity was expensive. A previous physician she hasn't seen in a while started her on this. Will start on Lantus daily and increase sliding scale. Will need to FU OP with PCP for mangement. We will continue to follow as needed. Patient Problems/Allergies Allergies Valium - Nausea Lab Results 1053 Chemistry GLUCOSE 270 (H) 0728 Chemistry CHOLEST 223 (H) TRIGLYCE 140 HDL 43 CALC LDL 152 (H) TSH 2.13 0728 Chemistry-Other GLYCO- 11.1 (H) 0607 Chemistry GLUCOSE 238 (H) 203 Chemistry GLUCOSE 242 (H) May-28-2023 1611 Chemistry GLUCOSE 276 (H) Vital Signs 0742 T 98.1 HR 78 RR 16 BP 125 / 77 O2Sat 98 1607 T 98 HR 74 RR 16 BP 183 (H) / 106 (H) O2Sat 98 Intake and Output previous current encounter day day cumulative Intake 412 - 412 Output - - - Balance 412 - 412 Active Medications sertraline (zoloft) 25 MG PO QAM gabapentin 300 MG PO BIDPRN for PAIN nerve pain lisinopril 40 MG PO DAILY 40 MG = 2 TABLETS D5W 1000 ML IV PRN 100 ML/HR for HYPOGLYCEMIA Hypoglycemia Protocol For BG <70; start after D50 given if NPO or unable to swallow D50W INJ SYRINGE 25 ML IVP PRN for HYPOGLYCEMIA For BG 50-69 in ALERT patient if NPO or unable to swallow. May repeat if BG less than 70 after 15 D50W INJ SYRINGE 50 ML IVP PRN for HYPOGLYCEMIA For BG < 50 in ALERT patient if NPO or unable to swallow or any BG if patient has decreased level of consciousness Repeat if BG less than 70 after 15 min glucagon INJ 1 MG IM PRN for HYPOGLYCEMIA For BG < 70 and patient has no IV access Do not repeat glucose ORAL 40 % 2 TBE PO PRN for HYPOGLYCEMIA For BG < 50 mg/dL in ALERT patient if able to swallow (preferred). May repeat if BG remains less glucose ORAL 40 % 1 TBE PO PRN for HYPOGLYCEMIA For BG 50-69 mg/dL in ALERT patients if able to swallow (preferred). May repeat if BG remains insulin regular (humulin) 100 UNIT/ML Sliding Scale Dose SQ ACHS hydrOXYzine PAMOATE (Vistaril) 25 MG PO TIDPRN for ANXIETY LORazepam 2 MG PO TIDPRN for AGITATION MAY GIVE 15 MIN AFTER HALDOL IF STILL AGITATED haloperidol 5 MG PO TIDPRN for AGITATION traZODone 50 MG PO QHSPRN for SLEEP carmex lip balm 1 EA 1 SANCHO TOP PRN for OTHER- TYPE REASON IN COMMENTS multivitamin 1 TAB PO DAILY ondansetron 4 MG PO Q6PRN for NAUSEA/VOMITING cloNIDine (catapres) 0.1 MG PO TIDPRN for HYPERTENSION for BP > 140/90 bismuth subsalicylate TAB 262 MG 2 TAB PO Q1PRN for UPSET STOMACH (not to exceed 8 doses per day) magnesium hydroxide (MOM) 400 MG/5 ML 60 ML PO DAILYPRN for CONSTIPATION acetaminophen ES 500 MG PO Q6PRN for MILD PAIN (not to exceed 4 grams in 24 hours) Electronically signed by DUC CABRERA NP on 1426 I hereby attest the note that was written on this patient accurately reflects the notations made when patient was examined. Electronically signed by IOANA ADAM V on 1700 [facility] Discharge Summaries Date/Time Note Provider Source 2023-01-24 11:07:30 Assessments Multiple nodules of lung (ICD10) R91.8 Other nonspecific abnormal finding of lung field Generalized anxiety disorder (ICD10) F41.1 Generalized anxiety disorder chronic Hypercholesterolemia (ICD10) E78.00 Pure hypercholesterolemia, unspecified Fibromyalgia (ICD10) M79.7 Fibromyalgia Type 2 diabetes mellitus (ICD10) E11.9 Type 2 diabetes mellitus without complications Hypertensive disorder (ICD10) I10 Essential (primary) hypertension Plan DISCHARGE SUMMARY DATE OF ADMISSION: DATE OF DISCHARGE: DIAGNOSIS ON ADMISSION: DEPRESSIVE DISORDER DIAGNOSIS ON DISCHARGE: See Assessments REASON FOR HOSPITALIZATION: SI HOSPITAL COURSE Per Psych Eval: Rich García is a 52y White Female with history of Diabetes, Fibromyalgia, HTN, who presented to the ED complaining of suicide ideation with plan to overdoseon . Per ED note, patient told her children that she was going to kill herself by overdosing on medication. Children called the police. Patient has 7 children and is struggling with a long illness.On interview, pt states that her children thought she was suicidal and she was not. Pt states that she had a long drive to [place] and back and took 2 Benadryl because she wanted to sleep. Children had a hard time waking her. Pt denies having acute issues. 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 Pt was previously living in a car with 3 children but recently has moved to a trailer. She signed her lease on December 18. She mentions she took in an autistic 18 year old that was previously in foster care at the end of November. She previously was helping take care of him in the foster system. She denies wanting to hurt herself or other people. Allegedly pt wrote suicidal texts. However, pt clarifies that she has had been having trouble breathing and that every time she breathes she feels she is being stabbed and she wrote that she does not want to breathe anymore if it feels this way.Pt endorses that she has felt depressed before. She mentions that she was depressed 2-3 days after her in October 2018. She mentions that she was on a "depression medication" for 2 months after he passed. She denies currently feeling depressed. In the last 2 weeks pt says she has disrupted sleep. Gets home at 7am and then goes to bed and wakes up at 2pm to get the children. Then sleeps till 4pm to make dinner and then go back to work. She remarks that she also takes care of her mother who is having hallucinations. Denies loss of interest. Mentions that she still "crochets," "draws," and "takes pictures." Patient was admitted to secure unit and stabilized on Zoloft 50 mg daily. She tolerated this medication well with no negative side effects. Noted improvement in mood and elimination of suicidal ideation. Patient is regretful about her statements and states that she lives for her kids, parents. She states that she completed suicide it would destroy her mother and that her kids would have to go back into foster care. Patient was acceptable to advice that she needs to care for herself before she can care for other people. Patient endorse that she would reach out to her med surg rn and med surg rn's for additional support. The patient's aunt was called who denied any safety concerns for the patient. Internal Medicine was consulted due to patient's ongoing chronic issues. Gabapentin 300 mg t.i.d. was restarted for patient's fibromyalgia. She was put on insulin regimen for her diabetes as well as atorvastatin for hypercholesterolemia. Lisinopril 40 mg was given daily for blood pressure. Patient had elevated glucose during her time here. UDS negative, UA negative. A1c 11.1. TSH within normal limits. LDL elevated at 152, cholesterol elevated at 223. This patient was free of behavioral disturbance and did not require IM emergency medication during their admission. They engaged in group activities and were an active participant in their treatment team. On the day of discharge, this patient denies suicidal ideation, homicidal ideation, auditory or visual hallucinations, delusions, or psychosis. They are not an imminent risk to themselves or others and able to discharge at this time. TREATMENT PROVIDED DURING ADMISSION 1. Individual, group, activity, and milieu therapy. 2. Psychopharmacological management. 3. Safety assessments. 4. Discharge planning. 5. Treatment team meetings. MENTAL STATUS EXAM General: calm, cooperative Speech: regular rate and rhythm Motor: no psychomotor agitation or retardation Mood: "Ok, fine" Affect: Somewhat down, full range Thought process: linear and goal-directed Thought content: denies suicidal and homicidal ideation, plan, or intent; denies auditory and visual hallucinations, paranoid ideation, and delusions Cognition: AOX3, memory, concentration, and executive function intact Insight: fair Judgment: fair PLAN Patient is discharging to HOME. Patient will follow up with [facility]02/05/2023 1:00 PM. Patient was e-scribed a 30-day supply of discharge medications. Patient was in agreement with this plan and states that should they experience new or worsening symptoms in the future including suicidal or homicidal ideation, plan, or intent, they will call 911 or return to the nearest emergency department immediately. Plan of Care and Discharge Plan Discussed with Patient/Family Plan of care and discharge plan discussed with the patient and/or family. Questions answered. Discharge Medications <style size='11'>atorvaSTATin</style> <style size='9' forecolor='#[id number]'>20 MG BY MOUTH AT BEDTIME (ePrescribed by MICHAELA PATTON on 1057)</style> <style size='11'>gabapentin</style> <style size='9' forecolor='#[id number]'>300 MG BY MOUTH THREE TIME DAILY (ePrescribed by MICHAELA PATTON on 1057)</style> <style size='11'>insulin regular (humulin) 100 UNIT/ML</style> <style size='9' forecolor='#[id number]'>Sliding Scale SUBCUTANEOUS BEFORE MEALS AND AT BEDTIME (ePrescribed by MICHAELA PATTON on 1057)</style> <style size='11'>insulin, glargine 100 UNIT/ML</style> <style size='9' forecolor='#[id number]'>10 UN SUBCUTANEOUS AT BEDTIME (ePrescribed by MICHAELA PATTON on 1057)</style> <style size='11'>Lisinopril Oral Tablet 40 MG</style> <style size='9' forecolor='#[id number]'>40 MG BY MOUTH DAILY (ePrescribed by MICHAELA PATTON on 1057)</style> <style size='11'>sertraline (zoloft)</style> <style size='9' forecolor='#[id number]'>50 MG BY MOUTH EVERY MORNING (ePrescribed by MICHAELA PATTON on 1057)</style> Electronically signed by MICHAELA PATTON on 1115 [facility] History and Physical Notes Date/Time Note Provider Source 2023-01-22 12:54:02 Subjective/Physical Exam LEGAL STATUS: Voluntary CHIEF COMPLAINT: Suicide ideation HPI: Rich García is a 52y White Female with history of Diabetes, Fibromyalgia, HTN, who presented to the ED complaining of suicide ideation with plan to overdoseon . Per ED note, patient told her children that she was going to kill herself by overdosing on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 not better asexpected, or if any problems arise. Follow Up Care Yes Important Information Please understand that you have received care only on an emergency basis. If your condition does not improve, you should call your personal physician for follow-up care. If you do not have a physician, you may call the referred physician listed. If you have questions about your care or these discharge instructions, you may call the Emergency Department. Please take your discharge paperwork with you to any follow-up appointments. Follow-Up With: Primary Care Physician Activity Level As tolerated, unrestricted No Driving No Heavy Lifting Diet Regular Instructions Provided Patient Teaching Patient education provided Disease Process [facility]2017-11-19 20:59:00 Discharge Instructions 2 Discharge Diagnosis allergic reaction Important Information Consult your physician or return to the Emergency Department immediately if worse, if not better asexpected, or if any problems arise. Follow Up Care Yes Important Information Please understand that you have received care only on an emergency basis. If your condition does not improve, you should call your personal physician for follow-up care. If you do not have a physician, you may call the referred physician listed. If you have questions about your care or these discharge instructions, you may call the Emergency Department. Please take your discharge paperwork with you to any follow-up appointments. Follow Up Care Patient To Schedule Follow-Up With: Primary Care Physician Follow-Up Notes: follow up with your primary physician in 1-2 days Activity Level As tolerated, unrestricted Diet Diabetic Prescriptions Given Via: N/A Patient Teaching Patient education provided Disease Process Change in Care Procedures/Treatments Pain [facility] ([facility])2017-07-10 04:40:00 Discharge Instructions 2 Discharge Diagnosis Leg Pain Important Information Consult your physician or return to the Emergency Department immediately if worse, if not better asexpected, or if any problems arise. Follow Up Care Yes Important Information Please understand that you have received care only on an emergency basis. If your condition does not improve, you should call your personal physician for follow-up care. If you do not have a physician, you may call the referred physician listed. If you have questions about your care or these discharge instructions, you may call the Emergency Department. Please take your discharge paperwork with you to any follow-up appointments. Follow-Up With: Primary Care Physician Activity Level As tolerated, unrestricted Diet Regular Prescriptions Given Via: Printed and given to patient/caregiver. Patient Teaching Patient education [facility] ([facility])
[2025-04-19] MEDS ORDERED: IPRATROPIUM BROM 0.5MG/2.5ML ONE (18:17)
[2025-04-19] MEDS ORDERED: ALBUTEROL 2.5 MG/3 ML NEB SOL ONE (18:17)
[2025-04-19 19:11] LABS: Influenza A Ag Negative; Influenza B Ag Negative; SARS-CoV-2 Antigen Rapid Res Negative (Negative)
--- NOTE | 2025-04-19 19:19 | RAD REPORT ---
Procedure: Chest Single View HISTORY: Cough COMPARISON: none FINDINGS: Mild opacity mid right lung the left lung appears clear. No significant pleural effusion noted. The heart is normal size. IMPRESSION: Mild right lung opacity suspicious for pneumonia. This should be followed until it has cleared to hel p exclude an underlying mass.
--- NOTE | 2025-04-19 19:47 | EDPHYS ---
Physician Documentation [facility] Name: Raquel Villanueva Age: 54 yrs Sex: Female : 1970 Arrival Date: 04/19/2025 Time: 17:49 Bed 12 Private MD: ED Physician Abundio Ho HPI: 04/19 20:25 This 54 yrs old Female presents to ER via Ambulatory with complaints of Shortness Of kb Breath. 20:25 Pt is a 54 year old female who presents for chills, cough and shortness of breath that kb started yesterday. Denies chest pain, fever. . Historical: - Allergies: 18:08 No Known Allergies; iw - PMHx: 18:08 Hypertensive disorder; Diabetes mellitus; Fibromyalgia; iw - PSHx: 18:08 Cholecystectomy; liver; iw - Immunization history:: Adult Immunizations not up to date. - Infectious Disease History:: Denies. - Social history:: Smoking status: Patient denies any tobacco usage or history of. ROS: 20:25 Constitutional: As per HPI kb Exam: 20:25 Constitutional: This is a well developed, well nourished patient who is awake, alert, kb and in no acute distress. Head/Face: Normocephalic, atraumatic. ENT: Moist Mucous membranes Cardiovascular: Regular rate Respiratory: Respirations even and unlabored. No increased work of breathing. Talking in full sentences Skin: Warm, dry with normal turgor. Normal color. MS/ Extremity: Pulses equal, no cyanosis. Neurovascular intact. Full, normal range of motion. Neuro: Awake and alert, GCS 15, oriented to person, place, time, and situation. Vital Signs: 18:07 BP 170 / 102; Pulse 88; Resp 19; Temp 98.9; Pulse Ox 99% on R/A; Weight 99.79 kg; iw Height 5 ft. 8 in. ; 19:04 BP 162 / 98; Pulse 98; Resp 19; Pulse Ox 98% on R/A; iw 19:50 BP 138 / 92; Pulse 89; Resp 16; Pulse Ox 98% on R/A; dd2 18:07 Body Mass Index 33.45 (99.79 kg, 172.72 cm) iw MDM: 17:59 Medical Screening Exam initiated kb 20:26 Differential diagnosis: Chronic Obstructive Pulmonary Disease pneumonia, covid, flu. kb Data reviewed: vital signs, nurses notes. Counseling: I had a detailed discussion with the patient and/or guardian regarding the historical points, exam findings, and any diagnostic results supporting the discharge/admit diagnosis, lab results, radiology results, the need for outpatient follow up, a family practitioner, to return to the emergency department if symptoms worsen or persist or if there are any questions or concerns that arise at home. 04/19 18:03 Order name: COVID-19 Ag + Flu A+B Ag; Complete Time: 19:14 kb 04/19 18:03 Order name: Group A Streptococcus Rapid; Complete Time: 19:10 kb 04/19 19:12 Order name: Throat Culture EDMS 04/19 18:03 Order name: Chest Single View XRAY; Complete Time: 19:20 kb Administered Medications: 18:23 Drug: Albuterol Inhalation 2.5 mg Inhalation once Route: Inhalation; ph 18:23 Follow up: Response: No adverse reaction ph 18:23 Drug: Ipratropium Inhalation Aerosol 0.5 mg Inhalation once Route: Inhalation; ph 18:23 Follow up: Response: No adverse reaction ph 19:53 Drug: AZITHromycin PO 500 mg PO once Route: PO; dd2 19:53 Drug: predniSONE PO 20 mg PO once Route: PO; dd2 Disposition Summary: 04/19/25 19:46 Discharge Ordered Notes: Location: Home kb Condition: Stable kb Diagnosis - Pneumonia, unspecified organism kb Followup: kb - With: Emergency Department - When: As needed - Reason: Worsening of condition Followup: kb - With: Private Physician - When: 2 - 3 days - Reason: Recheck today's complaints, Continuance of care, Re-evaluation by your physician Discharge Instructions: - Discharge Summary Sheet kb - Community-Acquired Pneumonia, Adult, [id number] kb Forms: - Medication Reconciliation Form kb - Antibiotic Education kb - Prescription Opioid Use kb - Patient Portal Instructions kb - Leadership Thank You Letter kb Prescriptions: - albuterol sulfate 90 mcg/actuation Inhalation HFA Aerosol Inhaler - inhale 2 puff INHALATION route every 4 to 6 hours as needed for shortness of kb breath or wheezing; 1 Unspecified; Refills: 0, Product Selection Permitted - Prednisone 20 mg Oral Tablet - take 1 tablet ORAL route once daily for 5 days; 5 tablet; Refills: 0, Product kb Selection Permitted - Zithromax 500 mg Oral Tablet - take 1 tablet ORAL route once daily for 5 days; 5 tablet; Refills: 0, Product kb Selection Permitted Addendum: 04/21/2025 07:04 Co-signature as Attending Physician, Abundio SNIDER I reviewed the patient's care r n provided by the Advanced Practice Provider and agree with the diagnosis and treatment plan. Signatures: Dispatcher [employer] Toyin Henry, BRENNAN-C CONTINUOUS IMPROVEMENT COACH-Sosa Price, RN RN Abundio Hogan MD MD rn Hall, Patricia, RN RN ROSALINA CLAY RN RN dd2 Corrections: (The following items were deleted from the chart) 04/19 18:03 18:03 Group A Streptococcus Rapid [id number] ordered. RADHA GARCIA
--- NOTE | 2025-04-19 19:47 | ER ---
Nurse's Notes [facility] Name: Raquel Villanueva Age: 54 yrs Sex: Female : 1970 Arrival Date: 04/19/2025 Time: 17:49 Bed 12 Private MD: Diagnosis: Pneumonia, unspecified organism Presentation: 04/19 18:07 Chief complaint: Patient states: SOB , cough, chills since yesterday. Coronavirus iw screen: Client presents with at least one sign or symptom that may indicate coronavirus-19. Ebola Screen: No symptoms or risks identified at this time. Initial Sepsis Screen: Does the patient meet any 2 criteria? No. Patient's initial sepsis screen is negative. Does the patient have a suspected source of infection? No. Patient's initial sepsis screen is negative. Risk Assessment: Do you want to hurt yourself or someone else? Patient reports no desire to harm self or others. Onset of symptoms was April 18, 2025. 18:07 Method Of Arrival: Ambulatory iw 18:07 Acuity: MICHELLE 3 iw Historical: - Allergies: 18:08 No Known Allergies; iw - PMHx: 18:08 Hypertensive disorder; Diabetes mellitus; Fibromyalgia; iw - PSHx: 18:08 Cholecystectomy; liver; iw - Immunization history:: Adult Immunizations not up to date. - Infectious Disease History:: Denies. - Social history:: Smoking status: Patient denies any tobacco usage or history of. Screenin:24 [facility] ED Fall Risk Assessment (Adult) History of falling in the last 3 months, ph including since admission No falls in past 3 months (0 pts) Confusion or Disorientation Yes (5 pts) Intoxicated or Sedated No (0 pts) Impaired Gait No (0 pts) Mobility Assist Device Used No (0 pt) Altered Elimination No (0 pt) Score/Fall Risk Level 0 - 2 = Low Risk Oriented to surroundings, Maintained a safe environment, Hourly rounding (assess needs \T\ fall precautionary measures) done. Abuse screen: Denies threats or abuse. Denies injuries from another. Nutritional screening: No deficits noted. Tuberculosis screening: No symptoms or risk factors identified. Assessment: 18:25 General: Appears in no apparent distress. comfortable, Behavior is calm, cooperative, ph Reports chills for 1-2 days. Pain: Denies pain. Neuro: Level of Consciousness is awake, alert, obeys commands, Oriented to person, place, time, situation. Cardiovascular: Capillary refill < 3 seconds in bilateral fingers. Respiratory: Reports shortness of breath cough that is Airway is patent Respiratory effort is even, unlabored, Respiratory pattern is regular, symmetrical. Derm: Skin is pink, warm \T\ dry. 19:08 Reassessment: Patient appears in no apparent distress at this time. Reassessment: pt iw feels shaky, jittery after breathing treatment. Cardiovascular: Rhythm is regular. Respiratory: Reports shortness of breath cough that is Musculoskeletal: Range of motion: intact in all extremities. Vital Signs: 18:07 BP 170 / 102; Pulse 88; Resp 19; Temp 98.9; Pulse Ox 99% on R/A; Weight 99.79 kg; iw Height 5 ft. 8 in. ; 19:04 BP 162 / 98; Pulse 98; Resp 19; Pulse Ox 98% on R/A; iw 19:50 BP 138 / 92; Pulse 89; Resp 16; Pulse Ox 98% on R/A; dd2 18:07 Body Mass Index 33.45 (99.79 kg, 172.72 cm) iw ED Course: 17:52 Patient arrived in ED. ts1 17:59 Toyin Nunez FNP-C is [facility]. kb 17:59 Abundio Ho MD is Attending Physician. kb 18:08 Triage completed. iw 18:13 Sosa Eldridge, RN is Primary Nurse. iw 18:24 Patient has correct armband on for positive identification. Bed in low position. Call ph light in reach. Door closed. Noise minimized. Warm blanket given. Pillow given. 18:24 Arm band placed on Patient placed in an exam room. ph 18:25 COVID swab sent to lab. Flu and/or RSV swab sent to lab. Strep swab sent to lab. ph 19:08 No provider procedures requiring assistance completed. Patient did not have IV access iw during this emergency room visit. 19:12 Chest Single View XRAY In Process Unspecified. EDMS 19:53 Provided Education on: D/C EDUCATION. dd2 Administered Medications: 18:23 Drug: Albuterol Inhalation 2.5 mg Inhalation once Route: Inhalation; ph 18:23 Follow up: Response: No adverse reaction ph 18:23 Drug: Ipratropium Inhalation Aerosol 0.5 mg Inhalation once Route: Inhalation; ph 18:23 Follow up: Response: No adverse reaction ph 19:53 Drug: AZITHromycin PO 500 mg PO once Route: PO; dd2 19:53 Drug: predniSONE PO 20 mg PO once Route: PO; dd2 Medication: 18:24 VIS not applicable for this client. ph Outcome: 19:46 Discharge ordered by . kb 19:53 Discharged to home ambulatory, dd2 19:53 Condition: stable 19:53 Discharge instructions given to patient, Instructed on discharge instructions, follow up and referral plans. medication usage, Demonstrated understanding of instructions, follow-up care, medications, Prescriptions given X 3, 19:54 Patient left the ED. dd2 Signatures: Dispatcher [employer] EDToyin Adames, ROSIN BARREL FILLER-C ROSIN BARREL FILLER-Sosa rPice, RN Mariann Rios RN RN ph Simpson, Tanya, PAS PAS ts1 ROSALINA CLAY RN RN dd2
[2025-04-19] MEDS ORDERED: predniSONE 20 MG TAB ONE (19:51)
[2025-04-19] MEDS ORDERED: AZITHROMYCIN 250 MG TAB ONE (19:51)
[2025-04-19 20:03] VITALS: TEMP 98.9
[2025-04-19 20:05] VITALS: BP 162/98; O2SAT 98
== END 2025-04-19 19:54 | disposition home or self-care (01) ==
LOC: ER 17:49
DX: J18.9 Pneumonia, unspecified organism (principal); Z11.52 Encounter for screening for COVID-19
CPT/HCPCS: 36415; 71045; 87070; 87428; 99284; J7512; J7613; J7644